=== PATIENT | female | born 1965 | race Caucasian/White ===

== ENCOUNTER 2019-08-21 11:30 | Outpatient (CLI) | payer OTHER, SELFPAY ==
--- NOTE | 2019-08-21 11:34 | ECG_ITS ---
Measurements Intervals [place] Rate: 73 P: -1 W[place]: 116 QRS: 23 QRSD: 92 T: 40 QT: 353 QTc: 390 Interpretive Statements SINUS RHYTHM WITH SHORT [place] INTERVAL BORDERLINE ECG Electronically Signed On 08-21-2019 11:51:32 SET ILLUSTRATOR by Ever Narayan D.O.
[2019-08-21 12:08] LABS: Alanine Aminotransferase 42 U/L (4-35); Albumin Level 4.8 g/dL (3.5-5.1); Alkaline Phosphatase 77 U/L (38-126); Amylase 76 U/L (30-110); Aspartate Amino Transferase 30 U/L (14-36); Bilirubin,Total 0.4 mg/dL (0.2-1.3); Lipase 112 U/L (23-300)
== END 2019-08-21 11:31 | disposition home or self-care (01) ==
LOC: ANHSURGERY 11:34
PROVIDERS: PCP Internal Medicine; Visit Provider Surgery
DX: K82.8 Other specified diseases of gallbladder (principal); R94.31 Abnormal electrocardiogram [ECG] [EKG]
CPT/HCPCS: 36415; 80076; 82150; 83690; 86850; 86900; 86901; 93005

== ENCOUNTER 2019-09-01 00:40 | Day surgery (SDC) | payer OTHER, SELFPAY ==
[2019-08-18 08:58] VITALS: BMI 24.7
[2019-09-01] VITALS (9 sets, daily range): BP systolic 114–150; BP diastolic 53–76; PULSE 63–83; RESP 12–18; TEMP 36.8; O2SAT 95–100; BMI 24.5
[2019-09-01] MEDS: LACTATED RINGERS 1,000 ML 30 ML IV CONT ×2 (11:40→13:54)
[2019-09-01] MEDS: IBUPROFEN IV 800 MG/200 ML 800 MG/200 ML BAG 400 MG IVPB (11:40)
--- NOTE | 2019-09-01 11:55 | SUR.PREOP ---
1140; PT C/O MILD HEADACHE AND SLIGHT NAUSEA. IV IBUPROFEN STARTED
--- NOTE | 2019-09-01 12:32 | WPDANESEPPF ---
Anes - Initial Pre Proc Eval Procedure: Operation Date: 09/01/19 13:00 Proposed Procedures p Laparoscopic Cholecystectomy, Possible Open - Adrián Quintana DO Date/Time: 09/01/19 12:32 Surgeon: Adrián Quintana DO Pre Op Diagnosis: biliary dyskenisia Patient Data Age: 54 Gender: F Height: 5 ft 3 in Weight: 63 kg Last Vital Signs Temp 98.2 F 09/01/19 11:40 Pulse 73 09/01/19 11:40 Resp 18 09/01/19 11:40 BP 150/64 H 09/01/19 11:40 Pulse Ox 99 09/01/19 11:40 Allergies Allergy/AdvReac Type Severity Reaction Status Date / Time sulfamethizole AdvReac Severe Migraine Verified 09/01/19 11:56 pantoprazole AdvReac Mild Diarrhea Verified 09/01/19 11:56 Sulfa (Sulfonamide AdvReac Mild severe Verified 09/01/19 11:56 Antibiotics) migraine trimethoprim AdvReac Mild Migraine Verified 09/01/19 11:56 Home Medications Medication Instructions Recorded Confirmed Type cholecalciferol (vitamin D3) 50 2,000 unit PO DAILY 07/18/19 09/01/19 History mcg (2,000 unit) capsule esomeprazole magnesium 20 mg 20 mg PO DAILY 07/18/19 09/01/19 History capsule,delayed release multivit with 1 tablet PO DAILY 07/18/19 09/01/19 History eiivisqk-emyi-IF-lutein 8 mg iron-400 mcg-300 mcg tablet melatonin 3 mg capsule 3 mg PO HS PRN 07/21/19 09/01/19 History Patient hx anesthesia problems: none Family hx anesthesia problems: none PMFSH Past Medical History Medical History (Updated 09/01/19 @ 12:25 by Demarcus Taylor MD) GERD (gastroesophageal reflux disease) History of seizure Hyperlipidemia Surgical History Surgical History Hx of tonsillectomy Social History Social History Smoking status: Former smoker Second hand tobacco smoke exposure: No Smoking end date: 07/16/85 Alcohol intake: current Anes - Eval Final PreProcedure Day of Procedure 09/01/19 12:32 Patient weight: normal Heart: regular rate and rhythm Lungs: clear to auscultation Airway: Mallampati scale class II Neurological: alert and oriented Last oral intake: >/= 8 hours ASA classification: II Emergent: no Anesthetic plan: proceed Anesthesia type and monitoring: general ETT and standard monitoring Informed Consent: The patient's anesthetic plan and its attendant risks and benefits were discussed with the patient/family/POA. Questions were solicited and answers provided to the satisfaction of the patient/family/POA.
--- NOTE | 2019-09-01 12:34 | WPDHPUPDATE1 ---
History and Physical Update Update Date/Time: 09/01/19 12:34 History and Physical has been reviewed, including an updated exam of the patient. There are NO changes in the patient's condition. Risks, benefits, and alternatives have been discussed and questions answered. Patient agrees to proceed with procedure.
[2019-09-01] MEDS: ceFAZolin 2 GM/D5W 50 ML 2 GM/50 ML BAG IVPB (12:51)
[2019-09-01] MEDS: BUPIVACAINE/EPINEPHRINE 0.5% 30 ML VIAL INFILTRATE (13:30)
--- NOTE | 2019-09-01 13:49 | PM.PROC ---
Procedure Note - Detailed Date of procedure: 09/01/19 Pre-op diagnosis: biliary dyskenisia Post-op diagnosis: same Procedure performed: Laparoscopic Cholecystectomy Description of procedure: Procedure as well as risks, benefits, and alternatives were discussed with patient. Written consent was obtained and placed in chart prior to procedure. The patient was brought back to surgical suite. Patient was placed in supine position on operating table. Time-out was done to confirm patient and procedure. Patient was then intubated by the anesthesia department. Abdomen was prepped and draped in sterile fashion using chlorhexidine prep. 0.5% bupivacaine with epinephrine was infiltrated at each site of incision. An 11 millimeter vertical incision was made at the inferior portion of the umbilicus using a 15 blade scalpel. Blunt dissection was carried down to the linea alba. The linea alba was then incised using a 15 blade scalpel. The peritoneum was then bluntly entered. An 11 millimeter trocar was inserted and cabon dioxied insuflation was used to create a pneumoperitoneum. The camera was inserted and the abdomen was inspected. The patient was placed in reverse Trendelenberg position and rotated slightly to the left. A 5 millimeter incision was made in the epigastric region, and a 5 millimeter trocar was inserted under direct visualization. Two 5 millimeter incisions were made in the right upper quadrant, and two 5 millimeter trocars were inserted under direct visualization. The gallbladder was identified and grasped at the fundus and retracted superiorly. It was then grasped at the infundibulum retracted laterally. Careful dissection around the neck of the gallbladder was performed using blunt dissection with a [place] grasper and hook electrocautery. The cystic duct was identified, and a window was created behind it. The cystic artery was also identified and a window was created behind it. The critical view of safety was identified, visualizing the cystic duct running directly into the neck of the gallbladder, and the cystic artery running directly into the wall of the gallbladder. A 5 millimeter clip lens dotter was then used to place 2 clips proximally and 1 clip distally on both the cystic duct and cystic artery. They were then both transected using endoscopic scissors. Once safely away from the michael hepatitis, the gallbladder was dissected free from the liver bed using hook electrocautery. Hemostasis was achieved along the way. The gallbladder was removed completely and then removed through the umbilical port. The liver bed was then inspected. Hemostasis appeared adequate, and our clips appeared secure. The area was gently irrigated with sterile saline. No other abnormalities were seen. The patient was flattened out in bed, and 1 final inspection was made around the abdominal cavity. The ports were then removed under direct visualization, the camera was removed, and the pneumoperitoneum was released. The fascia of the umbilical incision was approximated using an 0 Vicryl [id number] suture. The skin of the incisions was approximated using 4-0 Monocryl subcuticular sutures. Exofin glue was applied on top. The patient was then awakened from anesthesia, extubated, and transferred to recovery. 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 She had a prior history of symptoms several years ago and had workup at that time which was essentially normal. She was placed on a PPI and with diet modification was able to control her symptoms. Over these past few months her symptoms have persisted despite dietary modifications. Gallbladder
== END 2019-09-01 16:15 | disposition home or self-care (01) ==
PROVIDERS: PCP Internal Medicine; Visit Provider Surgery
PROC: 0FT44ZZ Resection of Gallbladder, Percutaneous Endoscopic Approach (ICD-10-PCS; CPT 47562; principal; 2019-09-01 13:00)
DX: K81.1 Chronic cholecystitis (principal); E78.5 Hyperlipidemia, unspecified; K21.9 Gastro-esophageal reflux disease without esophagitis; Z87.891 Personal history of nicotine dependence
CPT/HCPCS: 47562; 88304; A9270; J0690; J1100; J1741; J2250; J2405; J2704; J2710; J3010; J7030; J7120

== ENCOUNTER 2020-07-05 06:56 | Outpatient (CLI) | payer OTHER, SELFPAY ==
[2020-07-05 07:27] LABS: Eosinophils Absolute Auto 0.2 K/mm3 (0-0.3); Hematocrit 36.5 % (37.0-47.0); Hemoglobin 12.1 g/dL (12.0-15.0); Immature Granulocyte Absolute 0.01 K/mm3 (0.00-0.031); Immature Granulocyte Percent A 0.2 % (0-0.5); Lymphocytes Absolute Auto 1.69 K/mm3 (0.9-3.2); Lymphocytes Percent Auto 40.1 % (18.3-44.2); Mean Corpuscular HGB Conc 33.2 g/dl (32-36); Mean Corpuscular Hemoglobin 30.6 pg (26-34); Mean Corpuscular Volume 92.2 fl (80-100); Mean Platelet Volume 9.1 fl (7.4-10.4); Monocytes Absolute Auto 0.3 K/mm3 (0.1-0.6); Monocytes Percent Auto 6.2 % (2.6-8.5); Neutrophils Percent Auto 48.5 % (45.5-73.1); Platelet Count Result 310 k/mm3 (150-375); Red Blood Count 3.96 M/mm3 (4.2-5.4); Red Cell Distribution Width 12.9 % (11.5-14.5); White Blood Count 4.2 K/mm3 (4.5-10.0)
[2020-07-05 07:39] LABS: Alanine Aminotransferase 18 U/L (4-35); Albumin Level 4.1 g/dL (3.5-5.1); Alkaline Phosphatase 61 U/L (38-126); Anion Gap 8 mmol/L (8-16); Aspartate Amino Transferase 22 U/L (14-36); Bilirubin,Total 0.5 mg/dL (0.2-1.3); Blood Urea Nitrogen 11 mg/dL (7-17); Calcium 9.2 mg/dL (8.4-10.2); Carbon Dioxide 28 mmol/L (22-30); Chloride 104 mmol/L (98-107); Cholesterol 208 mg/dL (0-200); Estimated Glomerular Filt Rate > 60; Glucose 105 mg/dL (65-105); HDL Direct 60 mg/dL; Magnesium 2.1 mg/dL (1.6-2.3); Potassium 3.9 mmol/L (3.4-5.0); Sodium 140 mmol/L (137-145); Triglycerides 64 mg/dL (<150)
[2020-07-05 07:50] LABS: LDL Cholesterol Direct 136 mg/dL
[2020-07-05 08:23] LABS: Vitamin D 25 Hydroxy 54.5 ng/mL
[2020-07-05 08:45] LABS: Folic Acid 17.7 ng/mL (2.76->20)
== END 2020-07-05 06:57 | disposition home or self-care (01) ==
PROVIDERS: PCP Internal Medicine; Visit Provider Internal Medicine
DX: Z00.00 Encounter for general adult medical examination without abnormal findings (principal); E55.9 Vitamin D deficiency, unspecified; R53.83 Other fatigue; K21.9 Gastro-esophageal reflux disease without esophagitis
CPT/HCPCS: 36415; 80053; 80061; 82306; 82607; 82746; 83735; 84443; 85025

== ENCOUNTER 2020-09-28 15:14 | Outpatient (CLI) | payer OTHER, SELFPAY ==
--- NOTE | ~2020-09-28 | XR_ITS ---
XR foot RT 2V DATE: 09/28/2020 15:31 INDICATION: Right lateral dorsal foot pain following injury TECHNIQUE: 2 views COMPARISON: None FINDINGS: Mild osteoarthritis at the first metatarsophalangeal joint. No fracture, dislocation, periosteal reaction or bone destruction, erosive change or calcaneal enthes opathy. IMPRESSION: Mild osteoarthritis at first metatarsophalangeal joint Reviewed, dictated and finalized at location A.
== END 2020-09-28 15:15 | disposition home or self-care (01) ==
PROVIDERS: PCP Internal Medicine; Visit Provider Internal Medicine
DX: M19.071 Primary osteoarthritis, right ankle and foot (principal)
CPT/HCPCS: 73620

== ENCOUNTER 2021-04-05 14:57 | Outpatient (CLI) | payer OTHER, SELFPAY ==
[2021-04-08 17:55] LABS: Lyme Disease Ab (IgM), Blot Negative (Negative); Lyme Disease Ab(IgG), Blot Negative (Negative)
== END 2021-04-05 14:58 | disposition home or self-care (01) ==
LOC: ANHLAB 15:00
PROVIDERS: PCP Internal Medicine; Visit Provider Physician Assistant
DX: T14.8XXA Other injury of unspecified body region, initial encounter (principal); W57.XXXA Bitten or stung by nonvenomous insect and other nonvenomous arthropods, initial encounter
CPT/HCPCS: 36415; 86617

== ENCOUNTER 2021-04-15 08:21 | Outpatient (CLI) | payer OTHER, SELFPAY ==
--- NOTE | 2021-04-19 12:13 | WPDHOLTEREM ---
Holter/Event Monitor Holter/Event Monitor Date of procedure: 04/15/21 Holter/Event Procedure: 24 Hr Holter Monitor Indications: Palpitations Conclusion: 1. 24 hour holter monitor on 04/15/21. 2. Underlying rhythm is sinus rhythm. HR range 53-126 bpm; average HR 78 bpm. 3. There are 3 premature supraventricular complexes and 4 supraventricular couplets. No supraventricular tachycardia. 4. There are 354 premature ventricular complexes, 4 ventricular bigeminy and 17 ventricular trigeminy. No ventricular tachycardia. 5. No sinoatrial or atrioventricular blocks. No significant pauses greater than 2 seconds. 6. Patient reports symptoms of chest pain, palpitations, fluttering which demonstrate sinus rhythm, HR range 74-99 bpm.
== END 2021-04-15 08:22 | disposition home or self-care (01) ==
LOC: ANHCARD 08:23
PROVIDERS: PCP Internal Medicine; Visit Provider Physician Assistant
DX: R00.2 Palpitations (principal)
CPT/HCPCS: 93225; 93226

== ENCOUNTER 2021-06-03 07:35 | Outpatient (CLI) | payer OTHER, SELFPAY ==
--- NOTE | 2021-06-03 | ECHO_ITS ---
Patient Info Name: Hetal Cordero Age: 55 years : 1965 Gender: Female Ht: 63 in Wt: 140 lbs BSA: 1.69 m2 HR: 71 bpm BP: 125 / 71 mmHg Heart Rhythm: Sinus Rhythm Exam Date: 06/03/2021 10:00 AM Exam Location: [facility] Patient Status: Outpatient Admit Date: 06/03/2021 Staff Ordering Physician: Christiana Kitchen MD Fuel Cell Repairer: Ervin Hammer, ANA, RT Attending Provider: Christiana Kitchen MD Exam Type: CA echo doppler color flow Study Info Complete two-dimensional, color flow and Doppler transthoracic echocardiogram is performed. Strain analysis performed. Summary 1. Complete two-dimensional, color flow and Doppler transthoracic echocardiogram is performed. 2. Strain analysis performed. 3. Left ventricular chamber dimension is normal. 4. Left ventricular systolic function is normal, estimated at 65-70%. 5. There is no increased left ventricular wall thickness. 6. The left ventricular diastolic function is grade I diastolic dysfunction. 7. Global longitudinal strain is normal at -18 %. 8. There is mild to moderate mitral valve regurgitation. 9. There is mild tricuspid valve regurgitation. Left Ventricle Left ventricular chamber dimension is normal. Left ventricular systolic function is normal, estimated at 65-70%. There is no increased left ventricular wall thickness. The left ventricular diastolic function is grade I diastolic dysfunction. Global longitudinal strain is normal at -18 %. Right Ventricle Right ventricular chamber dimension is normal. Right ventricular systolic function is normal. Left Atria Left atrial chamber dimension is normal. Right Atria Right atrial chamber dimension is normal. Atrial Septum Intact interatrial septum visualized by color flow imaging. Aortic Valve The aortic valve is probable trileaflet. There is mild aortic valve sclerosis. There is no aortic valve stenosis. There is trace aortic valve regurgitation. Pulmonic Valve The pulmonic valve is normal. There is no pulmonic valve stenosis. There is trace pulmonic regurgitation. Mitral Valve The mitral valve has normal leaflets. There is no mitral valve stenosis. There is mild to moderate mitral valve regurgitation. Tricuspid Valve The tricuspid valve leaflets are normal. There is no significant tricuspid valve stenosis. There is mild tricuspid valve regurgitation. No pulmonary hypertension, estimated pulmonary arterial systolic pressure is 22 mmHg. Pericardium/Pleural The pericardium appears normal. There is no pericardial effusion. Inferior Vena Cava Normal inferior vena cava with >50% collapse upon inspiration consistent with normal right atrial pressure, 5 mmHg. Aorta The aortic root size at the sinus of Valsalva is normal. Left Ventricular Outflow Tract Name Value Normal LVOT 2D LVOT Diameter 2.0 cm LVOT Doppler LVOT Peak Gradient 2 mmHg LVOT Mean Gradient 1 mmHg LVOT VTI 19 cm LVOT VTI/AV VTI Ratio 0.7 LVOT Stroke Volume
--- NOTE | 2021-06-03 | EST_ITS ---
Patient Info Name: Hetal Cordero Age: 55 years : 1965 Gender: Female Exam Date: 06/03/2021 11:03 AM Patient Status: Outpatient Admit Date: 06/03/2021 Staff Ordering Physician: Christiana Kitchen MD Litigation Manager: Ervin Hammer RDCS, RT Attending Provider: Christiana Kitchen MD Exercise Physician: Stefano Casey MD Exam Type: CA stress echo Study Info Indications R07.9 - Chest pain, unspecified Treadmill exercise stress echocardiogram is performed. Summary 1. With exercise, 2.0-2.[address] segment depression consistent with ischemia. 2. No echocardiographic evidence of ischemia up to level of 88% max predicted heart rate for age. 3. No exercise-induced chest pain. 4. Hypertensive blood pressure response. 5. Above average exercise capacity for age. Stress Echo Findings Left Ventricle Normal left venticular systolic function with no regional wall motion abnormalities noted at rest. Left ventricular end systolic volume decreases post stress. Overall global left ventricular systolic function Improved post stress. Left ventricular ejection fraction increases post stress. No regional wall motion abnormalities noted post stress. Normal augmentation of all wall segments without evidence of ischemia with stress. Left Ventricular Outflow Tract Name Value Normal LVOT 2D LVOT Diameter 1.97 cm LVOT Doppler LVOT Peak Gradient 2 mmHg LVOT Mean Gradient 1 mmHg LVOT VTI 18.67 cm LVOT VTI/AV VTI Ratio 0.68 LVOT Stroke Volume 56.83 ml LVOT CO 3.46 l/min LVOT CI 2.09 L/min/m2 Mitral Valve Name Value Normal MV Doppler MV Peak Gradient 1 mmHg MV Mean Gradient 0 mmHg MV Decel [place] 213.83 cm/s2 MV PHT 0 s MV Area (PHT) 2.86 cm2 4.00-5.00 MV Area (Cont Eq VTI) 4.75 cm2 MV Regurgitation Doppler MR Volume (Cont Eq) 41.46 ml MR Fraction (Cont Eq) 42 % MV Diastolic Function MV E Peak Velocity 56.64 cm/s MV A Peak Velocity 82.50 cm/s MV E/A 0.69 MV Decel Time 0 s MV Annular TDI MV E/e' (Septal) 8.44 <=8.00 MV E/e' (Lateral) 4.03 <=8.00 MV E/e' (Average) 6.23 Tri
--- NOTE | 2021-06-03 13:11 | PCCARD ---
Test completion was extended due to an issue sending images to synapse. IT assistance was needed to fix the issue. Murtaza
== END 2021-06-03 07:36 | disposition home or self-care (01) ==
LOC: ANHCARD 07:39
PROVIDERS: PCP Internal Medicine; Visit Provider Internal Medicine Cardiovascular Disease
DX: R00.2 Palpitations (principal); R07.89 Other chest pain; I36.1 Nonrheumatic tricuspid (valve) insufficiency; I34.0 Nonrheumatic mitral (valve) insufficiency
CPT/HCPCS: 93306; 93351

== ENCOUNTER 2022-04-27 09:34 | Outpatient (CLI) | payer OTHER, SELFPAY ==
[2022-04-27 10:03] LABS: Basophils Percent Auto 0.7 % (0.2-1.2); Eosinophils Absolute Auto 0.2 K/mm3 (0-0.3); Eosinophils Percent Auto 4.1 % (0-4.4); Hematocrit 38.9 % (37.0-47.0); Hemoglobin 12.7 g/dL (12.0-15.0); Immature Granulocyte Absolute 0.01 K/mm3 (0.00-0.031); Immature Granulocyte Percent A 0.2 % (0-0.5); Lymphocytes Absolute Auto 1.52 K/mm3 (0.9-3.2); Lymphocytes Percent Auto 36.3 % (18.3-44.2); Mean Corpuscular HGB Conc 32.6 g/dl (32-36); Mean Corpuscular Hemoglobin 30.9 pg (26-34); Mean Corpuscular Volume 94.6 fl (80-100); Mean Platelet Volume 8.8 fl (7.4-10.4); Monocytes Absolute Auto 0.3 K/mm3 (0.1-0.6); Neutrophils Absolute Auto 2.2 K/mm3 (1.3-6.7); Neutrophils Percent Auto 52.7 % (45.5-73.1); Platelet Count Result 328 k/mm3 (150-375); Red Blood Count 4.11 M/mm3 (4.2-5.4); Red Cell Distribution Width 12.8 % (11.5-14.5); White Blood Count 4.2 K/mm3 (4.5-10.0)
[2022-04-27 10:17] LABS: Influenza Control Positive
[2022-04-27 10:57] LABS: Alanine Aminotransferase 17 U/L (6-35); Albumin Level 4.6 g/dL (3.5-5.1); Alkaline Phosphatase 62 U/L (38-126); Anion Gap 9 mmol/L (8-16); Aspartate Amino Transferase 18 U/L (14-36); Bilirubin,Total 0.6 mg/dL (0.2-1.3); Blood Urea Nitrogen 9 mg/dL (7-17); Calcium 9.7 mg/dL (8.4-10.2); Carbon Dioxide 28 mmol/L (22-30); Chloride 103 mmol/L (98-107); Cholesterol 201 mg/dL (0-200); Estimated Glomerular Filt Rate > 60; Glucose 94 mg/dL (65-110); HDL Direct 61 mg/dL; Potassium 4.1 mmol/L (3.4-5.0); Sodium 140 mmol/L (137-145); Triglycerides 116 mg/dL (<150)
[2022-04-27 10:59] LABS: Vitamin D 25 Hydroxy 52.1 ng/mL
[2022-04-27 11:08] LABS: LDL Cholesterol Direct 113 mg/dL
[2022-04-27 12:03] LABS: Folic Acid 15.3 ng/mL (2.76->20)
== END 2022-04-27 09:35 | disposition home or self-care (01) ==
LOC: ANHLAB 10:00
PROVIDERS: PCP Internal Medicine; Visit Provider Internal Medicine
DX: R53.83 Other fatigue (principal); B34.9 Viral infection, unspecified; R19.7 Diarrhea, unspecified; Z00.00 Encounter for general adult medical examination without abnormal findings
CPT/HCPCS: 80053; 80061; 82306; 82607; 82746; 84443; 85025; 87045; 87427; 87804; 89055

== ENCOUNTER 2022-12-29 01:21 | Day surgery (SDC) | payer OTHER, SELFPAY ==
[2022-12-18 14:01] VITALS: BMI 23.8
--- NOTE | 2022-12-29 08:15 | WPDANESEPPF ---
Anes - Initial Pre Proc Eval Procedure: Operation Date: 12/29/22 13:30 Proposed Procedures p Esophagogastroduodenoscopy - Fabiano Fraga MD Date/Time: 12/29/22 08:15 Surgeon: Fabiano Fraga MD Pre Op Diagnosis: GERD Patient Data Age: 57 Gender: F Height: 1.6 m Weight: 61 kg Allergies Allergy/AdvReac Type Severity Reaction Status Date / Time sulfamethoxazole AdvReac Severe Migraine Verified 12/29/22 12:25 pantoprazole AdvReac Mild Diarrhea Verified 12/29/22 12:25 Sulfa (Sulfonamide AdvReac Mild severe Verified 12/29/22 12:25 Antibiotics) migraine trimethoprim AdvReac Mild Migraine Verified 12/29/22 12:25 Home Medications Medication Instructions Recorded Confirmed Type cholecalciferol (vitamin D3) 50 2,000 unit PO DAILY 07/18/19 12/18/22 History mcg (2,000 unit) capsule multivit with 1 tablet PO DAILY 07/18/19 12/18/22 History dzqiwolj-pwnv-AY-lutein 8 mg iron-400 mcg-300 mcg tablet (Centrum Silver Women) melatonin 3 mg capsule 3 mg PO HS PRN Insomnia 07/21/19 12/18/22 History simethicone 125 mg capsule 125 mg PO DAILY PRN Abdominal 09/20/20 12/18/22 History Discomfort famotidine 20 mg tablet 20 mg PO BID 09/21/20 12/18/22 History calcium carbonate 200 mg calcium 200 mg PO BID PRN Abdominal 04/05/21 12/18/22 History (500 mg) chewable tablet (Tums) Discomfort prasterone (dhea) 6.5 mg vaginal 1 insert vaginal DAILY 11/24/22 12/18/22 History insert omega 0-kju-xwq-fish oil 300 1 cap PO 3XW 12/18/22 12/18/22 History mg-1,000 mg capsule (Fish Oil) Patient hx anesthesia problems: none Family hx anesthesia problems: none Results Review: All pre-operative results and documents have been reviewed as part of the pre-operative evaluation. [facility] Past Medical History Medical History (Updated 12/29/22 @ 12:36 by Douglas Díaz MD) GERD (gastroesophageal reflux disease) History of seizure Hyperlipidemia Insomnia Mitral valve regurgitation Tricuspid valve regurgitation Surgical History Surgical History History of colposcopy History of laparoscopic cholecystectomy 09/01/2019 Hx of tonsillectomy Family History Family History Grandparent Hypertension Cerebrovascular accident Diabetes mellitus Mother Cerebrovascular accident History of alcohol abuse Diabetes mellitus Hypertension Depression Anxiety Father Hypertension Sibling Patient's brother is in good health Hypertension Other History of alcohol abuse Other Family history of alcoholism Family history of arthritis Family history of diabetes mellitus in first degree relative Family history of malignant neoplasm Family history of mental disorder Social History Social History Smoking status: Former smoker Second hand tobacco smoke exposure: No Smoking end date: 07/16/85 Alcohol intake: current Drinks per week: 2 Alcohol use details: 2-3 drinks per month Substance use: never Substance use type: does not use Lack of Transportation: No Lack of Food: Never True Current Housing: I Have Housing Concerned About Future Housing: No Difficulty Paying Gas/Electric Bills: No Difficulty Paying for Meds: No Currently Unemployed: No Education: Bachelor's Degree Difficulty w/ Childcare or Family Care: No Living arrangements: with family Spiritual care concerns: No Anes - Eval Final PreProcedure Day of Procedure 12/29/22 08:15 Patient weight: normal Heart: regular rate and rhythm Lungs: clear to auscultation Airway: Mallampati scale class II Neurological: alert and oriented Last oral intake: >/= 8 hours ASA classification: II Emergent: no Anesthetic plan: proceed Anesthesia type and monitoring: general GIVS and standard monitoring Results Review: All pre-operative results a
--- NOTE | 2022-12-29 11:20 | PM.HPGS ---
History of Present Illness History of Present Illness Consent: Risks, benefits, and alternatives have been discussed and questions answered. Patient agrees to proceed with procedure. Chief complaint: GERD Narrative: Hetal Codrero is a 57 year old female Referred because of refractory gastroesophageal reflux symptoms. She does take Nexium regularly. She has had episodes of atypical chest pain. Cardiac investigation a few months ago was negative. When she woke up at 4:00 a.m. and took a GI cocktail she had improvement in symptoms. she has had gastrointestinal problems for most of her life. She took Protonix several years ago for heartburn and later switched to Nexium. She stopped taking them and had return of symptoms for which she now takes Pepcid twice a day. When she has tried to take a PPI in the last couple years ago because brain fog. With her current regimen she does not have heartburn. Her main complaint is pain which is severe at times in the lower substernal area. Will last anywhere from 10 minutes to half an hour or so. She denies dysphagia. She has a son who has problems with bowels and she was wondering whether that could be connected somewhat to her symptoms. somebody also a distant relative has celiac disease. Her weight is stable . She feels that she is having spasms in her upper gastrointestinal tract. Review of Systems Review of Systems: All systems reviewed & are unremarkable except as noted in HPI and below PMFSH Past Medical History Medical History (Updated 12/29/22 @ 12:36 by Douglas Díaz MD) GERD (gastroesophageal reflux disease) History of seizure Hyperlipidemia Insomnia Mitral valve regurgitation Tricuspid valve regurgitation Surgical History Surgical History History of colposcopy History of laparoscopic cholecystectomy 09/01/2019 Hx of tonsillectomy Family History Family History Grandparent Hypertension Cerebrovascular accident Diabetes mellitus Mother Cerebrovascular accident History of alcohol abuse Diabetes mellitus Hypertension Depression Anxiety Father Hypertension Sibling Patient's brother is in good health Hypertension Other History of alcohol abuse Other Family history of alcoholism Family history of arthritis Family history of diabetes mellitus in first degree relative Family history of malignant neoplasm Family history of mental disorder Social History Social History Smoking status: Former smoker Second hand tobacco smoke exposure: No Smoking end date: 07/16/85 Alcohol intake: current Drinks per week: 2 Alcohol use details: 2-3 drinks per month Substance use: never Substance use type: does not use Lack of Transportation: No Lack of Food: Never True Current Housing: I Have Housing Concerned About Future Housing: No Difficulty Paying Gas/Electric Bills: No Difficulty Paying for Meds: No Currently Unemployed: No Education: Bachelor's Degree Difficulty w/ Childcare or Family Care: No Living arrangements: with family Spiritual care concerns: No Meds Home Medications and Allergies Home Medications Medication Instructions Recorded Confirmed Type cholecalciferol (vitamin D3) 50 2,000 unit PO DAILY 07/18/19 12/18/22 History mcg (2,000 unit) capsule multivit with 1 tablet PO DAILY 07/18/19 12/18/22 History oprqgirp-lkle-TO-lutein 8 mg iron-400 mcg-300 mcg tablet (Centrum Silver Women) melatonin 3 mg capsule 3 mg PO HS PRN Insomnia 07/21/19 12/18/22 History simethicone 125 mg capsule 125 mg PO DAILY PRN Abdominal 09/20/20 12/18/22 History Discomfort famotidine 20 mg tablet 20 mg PO BID 09/21/20 12/18/22 History calcium carbonate 200 mg calcium 200 mg PO BID PRN Abdominal 04/05/21 12/18/22 History (50
[2022-12-29 12:31] VITALS: BP 130/60; PULSE 72; RESP 18; TEMP 36.4; O2SAT 100
[2022-12-29] MEDS: LACTATED RINGERS 1,000 ML 150 ML IV CONT (12:42)
[2022-12-29] MEDS: BENZOCAINE (*SP) 60 ML SPRAY CAN (HURRICAINE) 1 SPRAY MUCOUS MEM (13:35)
[2022-12-29 13:49] VITALS: BP 100/56; PULSE 73; RESP 20; O2SAT 100
[2022-12-29 13:59] VITALS: BP 118/75; PULSE 69; RESP 18; O2SAT 100
[2022-12-29 14:09] VITALS: BP 118/76; PULSE 73; RESP 20; O2SAT 100
== END 2022-12-29 14:26 | disposition home or self-care (01) ==
PROVIDERS: PCP Internal Medicine; Visit Provider Internal Medicine Gastroenterology
PROC: 0DJ08ZZ Inspection of Upper Intestinal Tract, Via Natural or Artificial Opening Endoscopic (ICD-10-PCS; CPT 43235; principal; 2022-12-29 13:30)
DX: K21.9 Gastro-esophageal reflux disease without esophagitis (principal); K22.2 Esophageal obstruction; E78.5 Hyperlipidemia, unspecified; Z87.891 Personal history of nicotine dependence
CPT/HCPCS: 43239; 87081; 88305; J2704; J7120

== ENCOUNTER 2023-06-20 10:01 | Outpatient (CLI) | payer OTHER, SELFPAY ==
[2023-06-20 10:38] LABS: Basophils Percent Auto 0.8 % (0.2-1.2); Eosinophils Absolute Auto 0.1 K/mm3 (0-0.3); Eosinophils Percent Auto 3.6 % (0-4.4); Hematocrit 37.9 % (37.0-47.0); Hemoglobin 12.3 g/dL (12.0-15.0); Immature Granulocyte Absolute 0.01 K/mm3 (0.00-0.031); Immature Granulocyte Percent A 0.3 % (0-0.5); Lymphocytes Absolute Auto 1.26 K/mm3 (0.9-3.2); Mean Corpuscular HGB Conc 32.5 g/dl (32-36); Mean Corpuscular Hemoglobin 30.7 pg (26-34); Mean Corpuscular Volume 94.5 fl (80-100); Mean Platelet Volume 8.7 fl (7.4-10.4); Monocytes Absolute Auto 0.2 K/mm3 (0.1-0.6); Monocytes Percent Auto 6.7 % (2.6-8.5); Neutrophils Absolute Auto 1.9 K/mm3 (1.3-6.7); Neutrophils Percent Auto 53.6 % (45.5-73.1); Platelet Count Result 283 k/mm3 (150-375); Red Blood Count 4.01 M/mm3 (4.2-5.4); Red Cell Distribution Width 12.6 % (11.5-14.5); White Blood Count 3.6 K/mm3 (4.5-10.0)
[2023-06-20 10:50] LABS: Alanine Aminotransferase 18 U/L (6-35); Albumin Level 4.3 g/dL (3.5-5.1); Alkaline Phosphatase 55 U/L (38-126); Anion Gap 7 mmol/L (8-16); Aspartate Amino Transferase 23 U/L (14-36); Bilirubin,Total 0.7 mg/dL (0.2-1.3); Blood Urea Nitrogen 8 mg/dL (7-17); Calcium 9.1 mg/dL (8.4-10.2); Carbon Dioxide 28 mmol/L (22-30); Chloride 102 mmol/L (98-107); Cholesterol 226 mg/dL (0-200); Estimated Glomerular Filt Rate > 60; Glucose 86 mg/dL (65-110); HDL Direct 59 mg/dL; Potassium 3.9 mmol/L (3.4-5.0); Sodium 137 mmol/L (137-145); Triglycerides 73 mg/dL (<150)
[2023-06-20 11:01] LABS: LDL Cholesterol Direct 119 mg/dL
[2023-06-20 11:26] LABS: Vitamin D 25 Hydroxy 43.2 ng/mL
== END 2023-06-20 10:02 | disposition home or self-care (01) ==
PROVIDERS: PCP Internal Medicine; Visit Provider Internal Medicine
DX: Z00.00 Encounter for general adult medical examination without abnormal findings (principal); E55.9 Vitamin D deficiency, unspecified
CPT/HCPCS: 36415; 80053; 80061; 82306; 84443; 85025

== ENCOUNTER 2023-12-26 11:01 | Emergency (ER) | payer OTHER, SELFPAY ==
[2023-12-26 11:07] VITALS: BP 136/74; PULSE 73; RESP 16; TEMP 37; O2SAT 97
--- NOTE | 2023-12-26 11:09 | ED.SKABFB ---
HPI - Skin/Abscess/Foreign Bdy General Chief complaint: Skin/Abscess/Foreign Body Stated complaint: shingles Time Seen by Provider: 12/26/23 11:09 Source: patient Mode of arrival: ambulatory Limitations: no limitations History of Present Illness HPI narrative: Hetal is a 58-year-old female patient presenting to clinic today with complaints of a rash to the right lower lateral abdomen. She thinks that she may have shingles. States she 1st noticed a rash last night it is becoming itching and mildly painful. Noted a erythemic base with some vesicular like lesions. Patient works as a pharmacist. States she has been under lot of stress at home. No history of shingles in the past. Denies any environmental changes or concerns for poison bianca. Related Data Home Medications Medication Instructions Recorded Confirmed cholecalciferol (vitamin D3) 50 2,000 unit PO DAILY 07/18/19 09/27/23 mcg (2,000 unit) capsule melatonin 3 mg capsule 3 mg PO HS Insomnia 07/21/19 09/27/23 simethicone 125 mg capsule 125 mg PO DAILY Abdominal 09/20/20 09/27/23 Discomfort famotidine 20 mg tablet 20 mg PO BID 09/21/20 09/27/23 calcium carbonate (Tums) 200 mg PO BID Abdominal Discomfort 04/05/21 09/27/23 omega 4-hiw-ces-fish oil 300 1 cap PO 3XW 12/18/22 09/27/23 mg-1,000 mg capsule (Fish Oil) Lactobacillus rhamnosus GG 10 1 cap PO DAILY 02/20/23 09/27/23 billion cell capsule (Culturelle) vitamin B complex (B 1 tablet PO DAILY 02/20/23 09/27/23 Complex-Vitamin B12 tablet) Allergies Allergy/AdvReac Type Severity Reaction Status Date / Time sulfamethoxazole AdvReac Severe Migraine Verified 12/26/23 11:11 pantoprazole AdvReac Mild Diarrhea Verified 12/26/23 11:11 Sulfa (Sulfonamide AdvReac Mild severe Verified 09/27/23 08:04 Antibiotics) migraine trimethoprim AdvReac Mild Migraine Verified 09/27/23 08:04 Review of Systems Review of Systems: Pertinent positives per HPI. Patient denies any fever, chills, headache, visual changes, dizziness, cough, runny nose, sore throat, shortness of breath, chest pain, palpitations, nausea, vomiting, diarrhea, constipation, abdominal pain, or any urinary issues. [facility] Past Medical History Medical History GERD (gastroesophageal reflux disease) History of seizure Hyperlipidemia Insomnia Mitral valve regurgitation Tricuspid valve regurgitation Surgical History Surgical History History of colposcopy History of laparoscopic cholecystectomy 09/01/2019 Hx of tonsillectomy Family History Family History Grandparent Hypertension Cerebrovascular accident Diabetes mellitus Mother Cerebrovascular accident History of alcohol abuse Diabetes mellitus Hypertension Depression Anxiety Father Hypertension Sibling Patient's brother is in good health Hypertension Other History of alcohol abuse Other Family history of alcoholism Family history of arthritis Family history of diabetes mellitus in first degree relative Family history of malignant neoplasm Family history of mental disorder Social History Social History Smoking status: Former smoker Second hand tobacco smoke exposure: No Smoking end date: 07/16/85 Alcohol intake: current Drinks per week: 2 Alcohol use details: 2-3 drinks per month Substance use: never Substance use type: does not use Lack of Transportation: No Lack of Food: Never True Current Housing: I Have Housing Concerned About Future Housing: No Difficulty Paying Gas/Electric Bills: No Difficulty Paying for Meds: No Currently Unemployed: No Education: Bachelor's Degree Difficulty w/ Childcare or Family Care: No Living arrangements: with family Spiritual care concerns: No Com
[2023-12-26 11:13] VITALS: BP 136/74; PULSE 73; RESP 16; TEMP 37; O2SAT 97
== END 2023-12-26 11:34 | disposition home or self-care (01) ==
PROVIDERS: Emergency Provider Nurse Practitioner Family; PCP Internal Medicine
DX: B02.9 Zoster without complications (principal); Z87.891 Personal history of nicotine dependence; K21.9 Gastro-esophageal reflux disease without esophagitis; E78.5 Hyperlipidemia, unspecified; I08.1 Rheumatic disorders of both mitral and tricuspid valves
CPT/HCPCS: 99213; G0463

== ENCOUNTER 2024-02-19 10:11 | Outpatient (CLI) | payer OTHER, SELFPAY ==
--- NOTE | ~2024-02-19 | DEXA_ITS ---
Bone Density Report Name: EDDIE LAKHANI Age: 58 Sex: Female Ethnicity: White Date of : 1965 Indication: postmenopausal; screening for osteoporosis; Referring Provider: LUCIA REYEZ Study: Bone densitometry was performed. Exam Date: February 19, 2024 Accession number: [id number] Bone Density: Region BMD T-score Z-score Classification AP Spine(L1-L4) 0.868 -1.6 -0.2 Osteopenia Femoral Neck (Left) 0.658 -1.7 -0.4 Osteopenia Total Hip (Left) 0.904 -0.3 0.7 Normal Femoral Neck (Right) 0.653 -1.8 -0.5 Osteopenia Total Hip (Right) 0.828 -0.9 0.0 Normal Total Hip Mean 0.866 -0.6 0.4 Normal World Health Organization criteria for BMD impression classify patients as: Normal (T-score at or above -1.0), Osteopenia (T-score between -1.0 and -2.5), or Osteoporosis (T-score at or below -2.5). 10-year Fracture Risk(1): Major Osteoporotic Fracture 8.8% Hip Fracture 0.9% Reported Risk Factors: [place] (), Neck BMD=0.658, BMI=24.8 (1) FRAX(R) Version 3.08. Fracture probability calculated for an untreated patient. Fracture probability may be lower if the patient has received treatment. Clinical Information Provided by Patient: Has used the following medications: Vitamin D Patient maximum height was 63 Menopause Age: 51 No regular weight bearing exercise Drinks caffeinated beverages Onset of menses at age 11 Number of children 3 Impression: The patient has low bone mass, based on the Right Femoral Neck T-score. The patient has an estimated ten-year risk of hip fracture of 0.9% and an estimated ten-year risk of major fracture of 8.8%, based on the WHO FRAX algorithm. Discussion: BONE DENSITY IS LOW AT ONE OR MORE SKELETAL SITES. This patient's lowest T-score is low at one or more skeletal sites. It meets the World Health Organization's (WHO) criteria for ?low bone mass? (T-score between -1.0 and -2.5). The patient's 10-year risk of fracture as calculated by FRAX is less than the threshold where pharmacological therapy is recommended by the National Osteoporosis Foundation (NOF). However, all treatment decisions require clinical judgment and consideration of individual patient factors, including patient preferences, comorbidities, previous drug use, risk factors not captured in the FRAX model (e.g., frailty, falls, vitamin D deficiency, increased bone turnover, interval significant decline in bone density) and possible under or overestimation of fracture risk by FRAX. The patient should follow a healthful lifestyle (good nutrition with adequate calcium and vitamin D, and appropriate weight-bearing exercise). Follow-Up: Consider repeating this study in 2 to 3 years to reassess this patient's status, or sooner if there is some new clinical indication. Reported by: TRACE on
== END 2024-02-19 10:12 | disposition home or self-care (01) ==
LOC: ANHIMG 10:13
PROVIDERS: PCP Internal Medicine; Visit Provider Obstetrics & Gynecology
DX: Z78.0 Asymptomatic menopausal state (principal); M85.88 Other specified disorders of bone density and structure, other site; M85.852 Other specified disorders of bone density and structure, left thigh; M85.851 Other specified disorders of bone density and structure, right thigh
CPT/HCPCS: 77080

== ENCOUNTER 2024-04-10 09:14 | Outpatient (CLI) | payer OTHER, SELFPAY ==
[2024-04-10 09:44] LABS: Add Urine Microscopic? NO; Appearance Urine Clear (Clear); Bilirubin Urine Negative (Negative); Blood Urine Negative (Negative); Color Urine Yellow (Yellow); Glucose Urine UA Negative (Negative); Ketones Urine Negative (Negative); Leukocyte Esterase Ur Negative LEU/UL (Negative); Nitrate Urine Negative (Negative); Protein Urine Negative (Negative); Specific Grav Ur 1.004 (1.001-1.035); Urobilinogen Urine 0.2 mg/dL (<2.0); pH Urine 6.5 (5.0-9.0)
[2024-04-10 09:57] LABS: Alanine Aminotransferase 20 U/L (6-35); Albumin Level 4.5 g/dL (3.5-5.1); Alkaline Phosphatase 57 U/L (38-126); Anion Gap 8 mmol/L (4-12); Aspartate Amino Transferase 24 U/L (14-36); Bilirubin,Total 0.5 mg/dL (0.2-1.3); Blood Urea Nitrogen 8 mg/dL (7-17); Calcium 9.1 mg/dL (8.4-10.2); Carbon Dioxide 27 mmol/L (22-30); Chloride 104 mmol/L (98-107); Estimated Glomerular Filt Rate > 60; Glucose 96 mg/dL (65-110); Potassium 3.7 mmol/L (3.4-5.0); Sodium 139 mmol/L (137-145)
[2024-04-10 10:55] LABS: Hemoglobin A1C 5.9 % (<5.7)
== END 2024-04-10 09:15 | disposition home or self-care (01) ==
PROVIDERS: PCP Internal Medicine; Visit Provider Nurse Practitioner
DX: R73.9 Hyperglycemia, unspecified (principal)
CPT/HCPCS: 36415; 80053; 81003; 83036

== ENCOUNTER 2024-08-05 09:24 | Outpatient (CLI) | payer OTHER, SELFPAY ==
--- NOTE | ~2024-08-05 | XR_ITS ---
Left foot Technique: AP, oblique, and lateral views were obtained. Clinical History: Pain Findings: No acute fracture or dislocation is seen. Osseous alignment is anatomic. Joint spaces are p reserved without erosive or degenerative change. Soft tissues are unremarkable. Impression: Unremarkable left foot radiographs. Reviewed, dictated and finalized at [facility]. 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
[2024-08-05 10:02] LABS: Hematocrit 39.6 % (37.0-47.0); Mean Corpuscular HGB Conc 32.8 g/dl (32-36); Mean Corpuscular Hemoglobin 31.1 pg (26-34); Mean Corpuscular Volume 94.7 fl (80-100); Mean Platelet Volume 9.2 fl (7.4-10.4); Platelet Count Result 318 k/mm3 (150-375); Red Blood Count 4.18 M/mm3 (4.2-5.4); Red Cell Distribution Width 12.8 % (11.5-14.5)
[2024-08-05 10:15] LABS: Alanine Aminotransferase 17 U/L (6-35); Albumin Level 4.7 g/dL (3.5-5.1); Alkaline Phosphatase 67 U/L (38-126); Anion Gap 10 mmol/L (4-12); Aspartate Amino Transferase 20 U/L (14-36); Bilirubin,Total 0.7 mg/dL (0.2-1.3); Blood Urea Nitrogen 8 mg/dL (7-17); Calcium 9.8 mg/dL (8.4-10.2); Carbon Dioxide 27 mmol/L (22-30); Chloride 104 mmol/L (98-107); Cholesterol 220 mg/dL (0-200); Estimated Glomerular Filt Rate > 60; Glucose 96 mg/dL (65-110); HDL Direct 69 mg/dL; Magnesium 1.9 mg/dL (1.6-2.3); Potassium 3.9 mmol/L (3.4-5.0); Sodium 141 mmol/L (137-145); Triglycerides 65 mg/dL (<150)
[2024-08-05 10:27] LABS: LDL Cholesterol Direct 121 mg/dL
[2024-08-05 10:38] LABS: Free T4 Free Thyroxine 0.97 ng/dL (0.78-2.19)
[2024-08-05 13:17] LABS: Hemoglobin A1C 5.8 % (<5.7)
== END 2024-08-05 09:25 | disposition home or self-care (01) ==
LOC: ANHLAB 09:28
PROVIDERS: PCP Nurse Practitioner; Visit Provider Nurse Practitioner
DX: E78.5 Hyperlipidemia, unspecified (principal); E55.9 Vitamin D deficiency, unspecified; Z00.00 Encounter for general adult medical examination without abnormal findings; R73.9 Hyperglycemia, unspecified; K21.9 Gastro-esophageal reflux disease without esophagitis; M79.672 Pain in left foot
CPT/HCPCS: 36415; 73630; 80053; 80061; 82306; 82607; 83036; 83735; 84439; 84443; 85027

== ENCOUNTER 2024-08-13 11:37 | Emergency (ER) | payer OTHER, SELFPAY ==
[2024-08-13 11:53] VITALS: BP 133/66; PULSE 80; RESP 18; TEMP 36.2; O2SAT 100
--- NOTE | 2024-08-13 12:07 | ED_ITS ---
HPI - URI/Sore Throat General Chief Complaint: Upper Respiratory Infection Stated Complaint: Congestion,Headache,Sore Throat Time Seen by Provider: 08/13/24 12:07 Source: patient, RN notes reviewed and old records reviewed Mode of arrival: ambulatory Limitations: no limitations History of Present Illness HPI Narrative: patient presents with 2 days of runny nose, sore throat, headache, body aches. She endorses slight cough. She has not been taking any medications for her symptoms. She reports that she came here primarily because she is concerned about having something communicable because her mother is in the hospital. She does report that she recently babysat her granddaughter who did test positive for RSV Related Data Home Medications ?Medication ?Instructions ?Recorded ?Confirmed ?Last Taken ?Type cholecalciferol (vitamin D3) 50 2,000 unit PO DAILY 07/18/19 08/05/24 08/25/19 History mcg (2,000 unit) capsule melatonin 3 mg capsule 3 mg PO HS Insomnia 07/21/19 08/05/24 08/28/19 History simethicone 125 mg capsule 125 mg PO DAILY Abdominal 09/20/20 08/05/24 Unknown History Discomfort famotidine 20 mg tablet 20 mg PO BID 09/21/20 08/05/24 Unknown History calcium carbonate (Tums) 200 mg PO BID Abdominal Discomfort 04/05/21 08/05/24 Unknown History omega 3-myi-nyj-fish oil 300 1 cap PO 3XW 12/18/22 08/05/24 Unknown History mg-1,000 mg capsule (Fish Oil) Lactobacillus rhamnosus GG 10 1 cap PO DAILY 02/20/23 08/05/24 Unknown History billion cell capsule (Culturelle) vitamin B complex (B 1 tablet PO DAILY 02/20/23 08/05/24 Unknown History Complex-Vitamin B12 tablet) loratadine 5 mg disintegrating 5 mg PO ONCE 02/22/24 08/05/24 Unknown History tablet (Allergy Relief (loratadine)) Allergies Allergy/AdvReac Type Severity Reaction Status Date / Time pantoprazole AdvReac Intermediate Diarrhea Verified 08/13/24 11:42 Sulfa (Sulfonamide AdvReac Intermediate Headache Verified 08/13/24 11:42 Antibiotics) sulfamethoxazole AdvReac Intermediate Migraine Verified 08/13/24 11:42 trimethoprim AdvReac Intermediate Migraine Verified 08/13/24 11:42 Review of Systems Review of Systems: All systems reviewed & are unremarkable except as noted in HPI and below Constitutional: Constitutional: Reports no additional constitutional complaints, Reports body ache(s) and Reports headache(s) ENT: Reports system reviewed and no additional complaints, except as documented, Reports nasal discharge and Reports sore throat Cardiovascular: Cardiovascular: Reports no additional cardiovascular complaints Respiratory: Respiratory: Reports no additional respiratory complaints and Reports cough Gastrointestinal: Gastrointestinal: Reports no additional gastrointestinal complaints [facility] Past Medical History Medical History (Updated 08/13/24 @ 12:15 by Kelsi Lundberg APRN) BMI 24.0-24.9, adult Upper abdominal pain Pure hypercholesterolemia Gastro-esophageal reflux disease without esophagitis Ear pain, left Dizziness and giddiness Current use of proton pump inhibitor Tricuspid valve regurgitation Mitral valve regurgitation Insomnia Hyperlipidemia GERD (gastroesophageal reflux disease) History of seizure Surgical History Surgical History History of colposcopy History of laparoscopic cholecystectomy 09/01/2019 Hx of tonsillectomy Family History Family History Grandparent Hypertension Cerebrovascular accident Diabetes mellitus Mother Cerebrovascular accident History of alcohol abuse Diabetes mellitus Hypertension Depression Anxiety Dementia Father Hypertension Dementia Alzheimer disease Malignant neoplasm of prostate Carcinoma of colon Liver cancer Sibling Patient's brother is in good health Hypertension Other Family history of alcoholism Family history of arthritis Family history of diabetes mellitus in first degree relative Family history of malignant neoplasm Family history of mental disorder Social History Social History Smoking status: Former smoker Second hand tobacco smoke exposure: No Smoking end date: 07/16/85 Alcohol intake: current Drinks per week: 2 Alcohol use details: 2-3 drinks per month Substance use: never Substance use type: does not use Do You Feel Safe in your Home?: Yes Lack of Transportation: No Lack of Food: Never True Current Housing: I Have Housing Concerned About Future Housing: No Difficulty Paying Gas/Electric Bills: No Difficulty Paying for Meds: No Currently Unemployed: No Education: Bachelor's Degree Difficulty w/ Childcare or Family Care: No Living arrangements: with family Occupation/Education: occupation Additional occupation/education comments: Pharmacist Gender identity (if verbalized by the patient): Female Spiritual care concerns: No Comments At the time of my signature, I reviewed and agree with the nursing past medical, surgical, social, and family history. There is no relevant family history pertinent to the patient complaint. Exam Const: General: cooperative, no acute distress, alert and awake Orientation/consciousness: oriented to person, oriented to place and oriented to time HENMT: Head: normal to inspection Ears: TM's normal bilaterally Mouth: Yes moist mucous membranes Throat: posterior oropharynx normal Resp: Effort & Inspection: normal respiratory effort and able to speak in complete sentences Auscultation: clear to auscultation bilaterally, no crackles, no rales, no rhonchi and no wheezes Cardio: Palpation: normal PMI Rate: regular rate Rhythm: regular rhythm Heart sounds: S1 normal heart sound present and S2 normal heart sound present Neuro: General: oriented to person, oriented to place and oriented to time Cranial nerves: Yes CN's II-XII intact bilaterally Psych: Appearance: grossly normal Thought process: Normal thought process present Insight: Good insight present (Psych) Judgement: Good judgement present (Psych) Course Course Level of Care: Express Care Visit Vital Signs Vital signs: Vital Signs Temperature 97.1 F L 08/13/24 11:53 Pulse Rate 80 08/13/24 11:53 Respiratory Rate 18 08/13/24 11:53 Blood Pressure 133/66 08/13/24 11:53 Pulse Oximetry 100 08/13/24 11:53 Oxygen Delivery Room Air 08/13/24 11:53 Temperature 97.1 F L 08/13/24 11:53 Pulse Rate 80 08/13/24 11:53 Respiratory Rate 18 08/13/24 11:53 Blood Pressure 133/66 08/13/24 11:53 Pulse Oximetry 100 08/13/24 11:53 Oxygen Delivery Room Air 08/13/24 11:53 Reviewed MDM - URI/Sore Throat MDM Narrative Medical decision making narrative: negative COVID, negative flu, negative strep. Culture pending. Patient does express disappointment that we do not test people in her age group for RSV at this facility . Her symptoms likely are viral in origin, she is advised to treat symptomatically. Discharge instructions reviewed with patient, as well as provided in writing per nursing staff. The instructions also include specific and strict return/GO TO THE ER as well as f/u information. All questions have been answered, and the patient deny any further questions with discharge and discharge plan. Some parts of this dictation were generated by voice recognition software and may contain typographical and/or grammatical inaccuracies. Differential Diagnosis Differential diagnosis: Likely upper respiratory infection, otitis media, sinusitis, bronchitis, influenza and pharyngitis Medical Records Attestation: I reviewed the patient's medical records. Lab Data Attestation: I reviewed the patient's lab results. Discharge Plan Discharge Clinical Impression: Acute viral syndrome Patient Disposition: Home, Self-Care Condition: Stable Instructions: Antibiotic Form Additional Instructions: use [id number] medications to treat your symptoms. Follow package instructions. Emergency department for any new or worse symptoms. Follow up with primary care provider. Patient Language: Lao Prescriptions: No Action cholecalciferol (vitamin D3) 50 mcg (2,000 unit) capsule 2,000 unit PO DAILY melatonin 3 mg capsule 3 mg PO HS calcium carbonate [Tums] 200 mg calcium (500 mg) tablet,chewable 200 mg PO BID methocarbamol 500 mg tablet 500 mg PO TID PRN (Reason: muscle spasm) Qty: 10 0RF zolpidem [Ambien CR] 6.25 mg tablet,ext release multiphase 6.25 mg PO QHS Qty: 30 0RF simethicone 125 mg capsule 125 mg PO DAILY vitamin B complex [B Complex-Vitamin B12] Tablet 1 tablet PO DAILY Culturelle 10 billion cell capsule 1 cap PO DAILY Allergy Relief (loratadine) 5 mg tablet,disintegrating 5 mg PO ONCE omega 4-dag-ngp-fish oil [Fish Oil] 300-1,000 mg Capsule 1 cap PO 3XW famotidine 20 mg tablet 20 mg PO BID Intrarosa 6.5 mg insert 6.5 mg vaginal DAILY Qty: 84 1RF Follow-up/Referrals: Nigel Carranza APRN [Primary Care Provider] - 2 Weeks Stand Alone Forms: Work/School Release IP Time of Disposition: 12:16
[2024-08-13 12:14] LABS: EDCOVIDSCREEN Negative (Negative); EDINFLUASCREEN Negative (Negative); EDINFLUBSCREEN Negative (Negative); EDSTREPNEGPOS1 Negative (Negative)
--- OUTSIDE RECORDS SUMMARY | 2024-08-13 12:57 | XMS_ITS | Clinical Summary ---
Author Organization [facility] Address [address] [place] [address] Care Team Providers Care Credit Collection Associate Name Role Phone Unavailable Primary Care Provider Unavailabl e Source Comments [facility],non-owned Affiliates and Associated Physician Practices is amultiple site organization consisting of ambulatory clinics and hospital sitesin [place], [place], [place] and [place]. This disclosure is being madepursuant to the Care Everywhere program and may not contain all information available regarding this patient. Last updated 18.[facility] Allergies Active Allergy Reactions Criticality Noted Date Comments Sulfamethoxazole W-Trimethoprim Headache 04/15 Immunizations Name Administration Dates Next Due HEP A VACCINE, ADULT 08/01/2018,08/07/2017 HEP B VACCINE, ADULT 3 DOSE 05/03/2018, 8,08/07/2017 TDAP (7yrs+) 08/07/2017 Social History Tobacco Use Types Packs/Day Years Used Date Smoking Tobacco: Never Assessed Sex and Gender Information Value Date Recorded Sex Assigned at Not on file Gender Identity Not on file Sexual Orientation Not on file Plan of Treatment Health Maintenance Due Date Last Done Comments COLOGUARD (AGES 45-75) - COL ON CA SCREENING 1965 COLON MONITORING 1965 COLONOSCOPY - COLON CA SCREENING 1965 CT COLONOGRAPHY - COLON CA SCREENING 1965 Colorectal Cancer Screening 1965 FIT - COLON CA SCREENING 1965 FLEX SIG - COLON CA SCREENING 1965 LIPID TESTING 1965 MAMMOGRAM 1965 PAP SMEAR 1963 HIV SCREENING 1978 HEPATITIS C SCREENING 08/05/1981 PNEUMOCOCCAL VACCINE 50+ (1 of 1 - PCV) 2013 ZOSTER VACCINE (1 of 2) 2013 COVID-19 VACCINE ( - 2023-2 5 season) 2024 INFLUENZA VACCINE (#1) 2024 DEPRESSION SCREENING 07/16/2024 DTAP/TDAP/TD VACCINES (2 - T d or Tdap) 08/07/2027 08/07/2017 Respiratory Syncytial Virus (RSV) Vaccine Pt: or over 60 yrs (1 - 1-dose 75+ series) 2038 HEPATITIS B VACCINE Completed 05/03/2018, 09/05/2017, 08/07/2017 HEPATITIS A VACCINE Completed 08/01/2018, 08/07/2017 HIB VACCINE Aged Out No longer eligi ble based on patient's age to complete this topic HPV VACCINE Aged Out No longer eligi ble based on patient's age to complete this topic MENINGOCOCCAL (Group B) VACCINE Aged Out No longer eligible b ased on patient's age to complete this topic MENINGOCOCCAL VACCINE Aged Out No nannette dionne eligible based on patient's age to complete this topic PNEUMOCOCCAL VACCINE Aged Out No long er eligible based on patient's age to complete this topic
--- OUTSIDE RECORDS SUMMARY | 2024-08-13 12:57 | XMS_ITS | Patient Health Summary ---
Author Organization [facility] Address [address] [place] [address] Care Team Providers Care School Business Manager Name Role Phone Unavailable Primary Care Provider Unavailabl e Note from [facility],non-owned Affiliates and Associated Physician Practices is amultiple site organization consisting of ambulatory clinics and hospital sitesin [place], [place], [place] and [place]. This disclosure is being madepursuant to the Care Everywhere program and may not contain all information available regarding this patient. Last updated 18.[facility] Allergies * Sulfamethoxazole W-Trimethoprim(Headache) Immunizations * HEP A VACCINE, ADULT(Given 08/01/2018, 08/07/2017) * HEP B VACCINE, ADULT 3 DOSE(Given 05/03/2018, 09/05/2017, 08/07/2017) * TDAP (7yrs+)(Given 08/07/2017) Social History Tobacco Use Types Packs/Day Years Used Date Smoking Tobacco: Never Assessed Sex and Gender Information Value Date Recorded Sex Assigned at Not on file Gender Identity Not on file Sexual Orientation Not on file Procedures * GROSS + MICRO EXAM(Performed 01/21/2007) Results * GROSS + MICRO EXAM (01/21/2007 1:57 PM CDT) Result CASE NUMBER [id number] Comment: ORDERING PHYSICIAN ??JAVIER LORENZO SPECIMEN TYPE ?Esophageal Biopsy-Distal Esophagus Date ? 01/21/2007 Physician ?[place], [place] Gross Description ? The specimen is received in a formalin-filled container labeled with the patient's name and distal esophagus . ??It consists of multiple 1 mm. fragments of brantley tissue. ??All submitted in a single cassette. LW/bk Microscopic Exam ? Sections sow fragments of esophageal squamous mucosa with unremarkable histology. No atypia or malignancy is seen. No intestinal metaplasia or dysplasia is seen. MC/na Diagnosis ? I. ?Distal esophagus, biopsy -- ?History of esophageal reflux -- ?No pathologic diagnosis MC/na Visitor Use Assistant ? na Pathologist ?Manasa Prakash M.D. [place]. ?01/22/2007 0926 <1> CPT code ? 73286 MISCELLANEOUS SAMPLES / Unknown 01/21/2007 1:57 PM CDT 01/21/2007 1:57 PM CDT Historical Provider MD LAB - PATHOLOGY/C YTOLOGY ORDERABLES
--- OUTSIDE RECORDS SUMMARY | 2024-08-13 12:57 | XMS_ITS | Referral Summary ---
Author Organization [facility] Address [address] [place] [address] Care Team Providers Care Field Instructor Name Role Phone Saurav Valverde MD Primary Care Provider +1 [phone] Encounters Date Type Department Care Team Description 07/04/2024 Orders Only [facility] Medical [facility] Cardiology [address] [place] [address] ProviderAsuncion MD 07/04/2024 10:30 AM WEIGHT TRAINING INSTRUCTOR Office Visit [facility] Cardiology [address] [place] [address] Stefano Casey MD Nonrheumatic mitral valve regurgitation (Primary Dx); Other chest pain; Palpitations; Pure hypercholesterolemia; Equivocal stress test from Last 3 Months Allergies Active Allergy Reactions Criticality Noted Date Comments Sulfamethoxazole-Trimethoprim Headache Low 2017 Trimethoprim Other (See comments) Low 05/16/2021 migraine Unclassified Drug Other (See comments) Low 06/29/20 16 Medications melatonin tablet Take by mouth nightly as needed Active famotidine (PEPCID) 20 mg tablet Take 1 tablet (20 mg total) by mouth 2 (two) times a day Active LORATADINE ORAL Take 5 mg by mouth as needed Active calcium carbonate (TUMS) 500 mg (200 mg elemental iron) chewable tablet Take 1 tablet/chew tab (500 mg total) by mouth daily Active Intrarosa 6.5 mg insert 01/13 01/14 023 Active rosuvastatin (CRESTOR) 5 mg tabletIndications:Pure hypercholesterolemia Take 1 tablet (5 mg total) by mouth daily 90 tablet 3 023 Active Additional Information Patient not taking.Reported on 07/04/2024 vitamin b complex tablet Take 1 tablet by mouth daily Active cholecalciferol (VITAMIN D-3) 2000 unit capsule 1 capsule (2,000 Units total) Active magnesium glycinate 100 mg tablet Take 100 mg by mouth Active Lactobac. rhamnosus GG-inulin 10 billion cell -200 mg tablet,chewable Take by mouth Active Active Problems Problem Noted Date Diagnosed Date Equivocal stress test 01/30/2023 Nonrheumatic mitral valve regurgitation 07/18/19 22 Pure hypercholesterolemia 05/18/2021 Other chest pain 05/16/2021 Palpitations 05/16/2021 Social History Tobacco Use Types Packs/Day Years Used Date Smoking Tobacco: Former Tobacco Cessation:Counseling Given: Not Answered Comments Unknown Sex and Gender Information Value Date Recorded Sex Assigned at Not on file Legal Sex Female 11:37 AM WEIGHT TRAINING INSTRUCTOR Gender Identity Not on file Sexual Orientation Not on file Last Filed Vital Signs Vital Sign Reading Time Taken Comments Blood Pressure 126/82 07/04/2024 10:51 AM WEIGHT TRAINING INSTRUCTOR Pulse 80 07/04/2024 10:51 AM WEIGHT TRAINING INSTRUCTOR Temperature - - Respiratory Rate - - Oxygen Saturation 96% 07/04/2024 10:51 AM WEIGHT TRAINING INSTRUCTOR Inhaled Oxygen Concentration - - Weight 61.2 kg (135 lb) 07/04/2024 10:51 AM WEIGHT TRAINING INSTRUCTOR Height 160 cm (5' 3 ) 07/04/2024 10:51 AM WEIGHT TRAINING INSTRUCTOR Body Mass Index 23.91 07/04/2024 10:51 AM WEIGHT TRAINING INSTRUCTOR Plan of Treatment Not on file Procedures Procedure Name Priority Date/Time Associated Diagnosis Comments POCT LIPID PANEL Routine 07/04/2024 10:59 AM WEIGHT TRAINING INSTRUCTOR Pure hypercholesterolemia SCREENING MAMMOGRAM BILATERAL W FILIBERTO Schedule Routine, Read Routine (OP Routine) 11/21/2023 1:03 PM CDT Screening mammogram, encounter for from Last 3 Months or Most Recently Relevant to Health Maintenance Results * POCT lipid panel (07/04/2024 10:59 AM WEIGHT TRAINING INSTRUCTOR) Cholesterol, POC 256 mg/dL Comment:Glucose = 86 HDL, POC 73 mg/dL Triglycerides, POC 65 mg/dL LDL Cholesterol POC 169 mg/dL Chol/HDL Ratio, POC 2.3 Non-HDL Cholesterol, POC 182 mg/dL Cholesterol Total, POC 256 mg/dL Capillary blood 07/04/2024 1 0:59 AM WEIGHT TRAINING INSTRUCTOR Stefano Casey MD POINT OF CARE TEST ORDERA BLES Final Result * Screening Mammogram Bilateral W Filiberto (11/21/2023 1:03 PM CDT) Anatomical Region Laterality Modality Breast Bilateral Mammography Narrative 11/22/2023 2:31 PM CDT Mammogram Technique: Bilateral Digital Breast Tomosynthesis, Bilateral C-view 2D Screening mammogram. ??Views obtained: ??bilateral craniocaudal and bilateral mediolateral oblique. ??Computer Aided Detection was performed. Mammogram Findings: The present examination has been compared to prior imaging studies performed at [facility] on 03/09/2020, 07/11/2021 and 10/19/2022. There are scattered areas of fibroglandular density. There is no suspicious abnormality in either breast. Impression: There is no mammographic evidence of malignancy. Annual screening mammography is recommended. OVERALL FINAL ASSESSMENT: BI-RADS CATEGORY 1: ??Negative. Procedure Note Adina Almendarez MD - 11/22/2023 Mammogram Technique: Bilateral Digital Breast Tomosynthesis, Bilateral C-view 2D Screening mammogram. Views obtained: bilateral craniocaudal and bilateral mediolateral oblique. Computer Aided Detection was performed. Mammogram Findings: The present examination has been compared to prior imaging studies performed at [facility] on 03/09/2020, 07/11/2021 and 10/19/2022. There are scattered areas of fibroglandular density. There is no suspicious abnormality in either breast. Impression: There is no mammographic evidence of malignancy. Annual screening mammography is recommended. OVERALL FINAL ASSESSMENT: BI-RADS CATEGORY 1: Negative. Self Screening Mammogram IMG MAMMO PROCEDURES Fi nal Result from Last 3 Months or Most Recently Relevant to Health Maintenance Insurance [facility] PREFERR[facility] [place] [phone] [facility] [place] [address] [place] [address] [facility] PREFERRED Care Teams Field Instructor Relationship Specialty Start Date End Date Saurav Valverde MD [address] [facility] [address] [place] [address] PCP - General Obstetrics and Gynecology 10/17/23
--- OUTSIDE RECORDS SUMMARY | 2024-08-13 12:57 | XMS_ITS | Referral Summary ---
Author Organization [facility] Address [address] [facility] [address] [place] [address] Care Team Providers Care Emulsion Coater Name Role Phone Unavailable Primary Care Provider Unavailabl e Source Comments [facility],non-owned Affiliates and Associated Physician Practices is amultiple site organization consisting of ambulatory clinics and hospital sitesin [place], [place], [place] and [place]. This disclosure is being madepursuant to the Care Everywhere program and may not contain all information available regarding this patient. Last updated 18.[facility] Stitch Allergies Active Allergy Reactions Criticality Noted Date [...] Orientation Not on file Plan of Treatment Not on file
--- OUTSIDE RECORDS SUMMARY | 2024-08-13 12:57 | XMS_ITS | Clinical Summary ---
Author Organization [facility] Address [address] [place] [address] Care Team Providers Care Java Lead Architect Name Role Phone Saurav Valverde MD Primary Care Provider [phone] Allergies Active Allergy Reactions Criticality Noted Date [...] 05/18/2021 Other chest pain 05/16/2021 Palpitations 05/16/2021 Encounters Date Type Department Care Team Description 07/04/2024 10:30 AM ORNAMENTAL METAL FABRICATOR APPRENTICE Office Visit [facility] Medical [facility] Cardiology [address] [place] [id number] Stefano Casey MD Nonrheumatic mitral valve regurgitation (Primary Dx); Other chest pain; Palpitations; Pure hypercholesterolemia; Equivocal stress test 07/04/2024 Orders Only [facility] Medical [facility] Cardiology [address] [place] [address] Provider, MD Asuncion from Last 3 Months Surgical History Surgery Date Site/Laterality Comments COLONOSCOPY LAPAROSCOPIC CHOLECYSTECTOMY Medical History Medical History Date Comments Palpitation Tick bite Joint pain Insomnia Family History Medical History Relation Name Comments Hypertension Father Alcohol abuse Mother Diabetes Mother Hypertension Mother Relation Name Status Comments Father Mother Social History Tobacco Use Types Packs/Day Years Used Date Smoking Tobacco: Former Tobacco Cessation:Counseling Given: Not Answered Comments Unknown Sex and Gender Information Value Date Recorded Sex Assigned at Not on file Legal Sex Female 11:37 AM ORNAMENTAL METAL FABRICATOR APPRENTICE Gender Identity Not on file Sexual Orientation Not on file Obstetrics History Last Filed Vital Signs Vital Sign Reading Time Taken Comments Blood Pressure 126/82 07/04/2024 10:51 AM ORNAMENTAL METAL FABRICATOR APPRENTICE Pulse 80 07/04/2024 10:51 AM ORNAMENTAL METAL FABRICATOR APPRENTICE Temperature - - Respiratory Rate - - Oxygen Saturation 96% 07/04/2024 10:51 AM ORNAMENTAL METAL FABRICATOR APPRENTICE Inhaled Oxygen Concentration - - Weight 61.2 kg (135 lb) 07/04/2024 10:51 AM ORNAMENTAL METAL FABRICATOR APPRENTICE Height 160 cm (5' 3 ) 07/04/2024 10:51 AM ORNAMENTAL METAL FABRICATOR APPRENTICE Body Mass Index 23.91 07/04/2024 10:51 AM ORNAMENTAL METAL FABRICATOR APPRENTICE Plan of Treatment Health Maintenance Due Date Last Done Comments Cervical Cancer Screening 1965 Colon Cancer Screening-Colonoscopy 1963 Depression Screening 1963 Hepatitis C Screening 1963 Regular Well Visit/Exam 18-64 1981 Zoster Vaccine (1 of 2) 2013 Covid-19 Vaccine (3 - season) 2024 07/25/2020, 07/05/2020 Influenza Vaccine (#1) 2024 Breast Cancer Screening-Mammogram 11/20/2024 11/21/2023, 10/19/2022, 07/11/2021, Additional history exists DTaP/Tdap/Td Vaccine (2 - Td or Tdap) 08/07/2027 08/07/2017 Pneumococcal vaccine <65 Aged Out No longer eligible based on patient's age to complete this topic Procedures Procedure Name Priority Date/Time Associated Diagnosis Comments POCT LIPID PANEL Routine 07/04/2024 10:59 AM ORNAMENTAL METAL FABRICATOR APPRENTICE Pure hypercholesterolemia SCREENING MAMMOGRAM BILATERAL W FILIBERTO Schedule Routine, Read Routine (OP Routine) 11/21/2023 1:03 PM CDT Screening mammogram, encounter for from Last 3 Months or Most Recently Relevant to Health Maintenance Results * POCT lipid panel (07/04/2024 10:59 AM ORNAMENTAL METAL FABRICATOR APPRENTICE) Cholesterol, POC 256 mg/dL Comment:Glucose = 86 HDL, POC 73 mg/dL Triglycerides, POC 65 mg/dL LDL Cholesterol POC 169 mg/dL Chol/HDL Ratio, POC 2.3 Non-HDL Cholesterol, POC 182 mg/dL Cholesterol Total, POC 256 mg/dL Capillary blood 07/04/2024 1 0:59 AM ORNAMENTAL METAL FABRICATOR APPRENTICE us Stefano Casey MD POINT OF CARE TEST [...] compared to prior imaging studies performed at [facility] on 03/09/2020, 07/11/2021 and 10/19/2022. There are [...] compared to prior imaging studies performed at [facility] on 03/09/2020, 07/11/2021 and 10/19/2022. There are scattered areas of fibroglandular density. There is no suspicious abnormality in either breast. Impression: There is no mammographic evidence of malignancy. Annual screening mammography is recommended. OVERALL FINAL ASSESSMENT: BI-RADS CATEGORY 1: Negative. us Self Screening Mammogram IMG MAMMO PROCEDURES Fi nal Result from Last 3 Months or Most Recently Relevant to Health Maintenance Insurance [facility] H[facility]/PPO Address: [address] [place] [address] [facility] [place] [facility] [place] PREFERRED Care Teams Java Lead Architect Relationship Specialty Start Date End Date Saurav Valverde MD [address] [facility] [address] [place] [address] PCP - General Obstetrics and Gynecology 10/17/23
== END 2024-08-13 12:20 | disposition home or self-care (01) ==
PROVIDERS: Emergency Provider Nurse Practitioner Family; PCP Nurse Practitioner
DX: B34.9 Viral infection, unspecified (principal); Z20.822 Contact with and (suspected) exposure to COVID-19; Z87.891 Personal history of nicotine dependence; E78.00 Pure hypercholesterolemia, unspecified; K21.9 Gastro-esophageal reflux disease without esophagitis; E78.5 Hyperlipidemia, unspecified; I08.1 Rheumatic disorders of both mitral and tricuspid valves
CPT/HCPCS: 87081; 87426; 87804; 87880; 99213; G0463

== ENCOUNTER 2025-02-10 08:01 | Outpatient (CLI) | payer OTHER, SELFPAY ==
--- OUTSIDE RECORDS SUMMARY | 2025-02-10 08:08 | XMS_ITS | Clinical Summary ---
Author Organization [facility] Address [address] [address] [place] [address] Care Team Providers Care Associate Professor Of Musicology Name Role Phone Unavailable Primary Care Provider Unavailabl e Source Comments [facility],non-owned Affiliates and Associated Physician Practices is amultiple site organization consisting of ambulatory clinics and hospital sitesin [place], [place], [place] and [place]. This disclosure is being madepursuant to the Care Everywhere program and may not contain all information available regarding this patient. Last updated 18.[facility] Allergies Active Allergy Reactions Criticality Noted Date Comments Sulfamethoxazole W-Trimethoprim Headache 04/15 Immunizations Immunization Administration Dates Next Due HEP A VACCINE, ADULT 08/01/2018,08/07/2017 HEP B VACCINE, ADULT 3 DOSE 05/03/2018, 8,08/07/2017 TDAP (7yrs+) 08/07/2017 Social History Tobacco Use Types Packs/Day Years Used Date Smoking Tobacco: Never Assessed Comments Unknown Sex and Gender Information Value Date Recorded Sex Assigned at Not on file Legal Sex Female 6:32 AM BRAID CUTTER Gender Identity Not on file Sexual Orientation [...] SCREENING 1965 LIPID TESTING 1965 MAMMOGRAM 1963 HIV SCREENING 1978 HEPATITIS C SCREENING 08/05/1981 PAP SMEAR 1984 PNEUMOCOCCAL VACCINE 50+ (1 of 1 - PCV) 2013 ZOSTER VACCINE (1 of 2) 2013 COVID-19 VACCINE (1 - 2023-2 5 season) 2024 DEPRESSION SCREENING 07/16/2024 INFLUENZA VACCINE (#1) 2025 DTAP/TDAP/TD VACCINES (2 - T d or [...] complete this topic MENINGOCOCCAL (Group B) VACCINE SHARED DECISION-MAKING Aged Out No longer eligible based on patient's age to complete this topic MENINGOCOCCAL GROUPS A/C/Y/W VACCINE Aged Out No longer eligible b ased on patient's age to [place] [address] [facility] [place] [address]
--- OUTSIDE RECORDS SUMMARY | 2025-02-10 08:08 | XMS_ITS | Referral Summary ---
Author Organization [facility] Address [address] [place] [address] Care Team Providers Care Loom Changeover Operator Name Role Phone Saurav Valverde MD Primary Care Provider [phone] Encounters Date Type Department Care Team Description 12/17/2024 9:19 AM CDT - 12/17/2024 11:59 PM CDT Hospital Encounter [facility] Medicine Breast Imaging [facility] Advanced Medicine ([facility]) [address] [place] [address] Screening mammogram, encounter for Discharge Disposition: Discharge to home or self care from Last 3 Months Allergies Active Allergy [...] on file Legal Sex Female 11:37 AM INSPECTOR TUBES Gender Identity Not on file Sexual Orientation Not on file Last Filed Vital Signs Vital Sign Reading Time Taken Comments Blood Pressure 126/82 07/04/2024 10:51 AM INSPECTOR TUBES Pulse 80 07/04/2024 10:51 AM INSPECTOR TUBES Temperature - - Respiratory Rate - - Oxygen Saturation 96% 07/04/2024 10:51 AM INSPECTOR TUBES Inhaled Oxygen Concentration - - Weight 61.2 kg (135 lb) 12/17/2024 9:33 AM CDT Height 160 cm (5' 3) 12/17/2024 9:33 AM CDT Body Mass Index 23.91 12/17/2024 9:33 AM CDT Plan of Treatment Not on file Procedures Procedure Name Priority Date/Time Associated Diagnosis Comments SCREENING MAMMOGRAM BILATERAL W FILIBERTO Schedule Routine, Read Routine (OP Routine) 12/17/2024 9:39 AM CDT Screening mammogram, encounter for from Last 3 Months Results * Screening Mammogram Bilateral W Filiberto (12/17/2024 9:39 AM CDT) Anatomical Region Laterality Modality Breast Bilateral Mammography Impressions 12/18/2024 11:47 AM CDT Bilateral No evidence of malignancy in either breast. OVERALL BI-RADS FINAL ASSESSMENT: 1 - Negative RECOMMENDATION: Recommend bilateral annual screening mammography. Narrative 12/18/2024 11:47 AM CDT EXAMINATION: Screening Mammogram Bilateral W Filiberto: 12/17/2024 COMPARISON: Relevant prior studies available at the time of interpretation were reviewed. TECHNIQUE: Mammography was performed with 2D and digital breast tomosynthesis (DBT) images. CAD was utilized. BREAST PARENCHYMAL COMPOSITION: There are scattered areas of fibroglandular density. FINDINGS: Bilateral There is no suspicious mass, calcification, or architectural distortion in either breast. us Self Screening Mammogram IMG MAMMO PROCEDURES Fi nal Result from Last 3 Months Insurance [facility] [address] [place] [phone] [facility] [place] [address] [facility] H[facility] PREF[facility] Care Teams Loom Changeover Operator Relationship Specialty Start Date End Date Saurav Valverde MD [address] [facility] [address] [place] [address] PCP - General Obstetrics and Gynecology 10/17/23
--- OUTSIDE RECORDS SUMMARY | 2025-02-10 08:08 | XMS_ITS | Clinical Summary ---
Author Organization [facility] Address [address] [place] [address] Care Team Providers Care Mover Name Role Phone Saurav Valverde MD Primary Care Provider [phone] Allergies Active Allergy Reactions Criticality Noted Date [...] - 12/17/2024 11:59 PM CDT Hospital Encounter [facility] Advanced Medicine Breast Imaging [facility] Advanced Medicine ([facility]) [address] [place] [address] Screening mammogram, encounter for Discharge Disposition: Discharge to home or self care from Last 3 Months Surgical History Surgery Date Site/Laterality Comments COLONOSCOPY LAPAROSCOPIC CHOLECYSTECTOMY Medical History Medical History Date Comments Palpitation Tick bite Joint pain Insomnia Family History Medical History Relation Name Comments Hypertension Father Breast cancer Maternal cousin Ovarian cancer Maternal cousin Alcohol abuse Mother Diabetes Mother Hypertension Mother Ovarian cancer Paternal Grandmother Relation Name Status Comments Father Maternal cousin Mother Paternal Grandmother Social History Tobacco Use Types Packs/Day Years Used Date Smoking Tobacco: Former Tobacco Cessation:Counseling Given: Not Answered Comments Unknown Sex and Gender Information Value Date Recorded Sex Assigned at Not on file Legal Sex Female 11:37 AM RESIDENTIAL YOUTH COUNSELOR Gender Identity Not on file Sexual Orientation Not on file Obstetrics History Para Term AB IAB SAB Ectopic Multiple Livin g Live Births 3 3 3 Date Outcome GA Total Labor Labor/2nd/3rd Weight Sex Type Anes PTL Ebony A1 A5 Name Clin Term Term Term Last Filed Vital Signs Vital Sign Reading Time Taken Comments Blood Pressure 126/82 07/04/2024 10:51 AM RESIDENTIAL YOUTH COUNSELOR Pulse 80 07/04/2024 10:51 AM RESIDENTIAL YOUTH COUNSELOR Temperature - - Respiratory Rate - - Oxygen Saturation 96% 07/04/2024 10:51 AM RESIDENTIAL YOUTH COUNSELOR Inhaled Oxygen Concentration - - Weight 61.2 kg (135 lb) 12/17/2024 9:33 AM CDT Height 160 cm (5' 3) 12/17/2024 9:33 AM CDT Body Mass Index 23.91 12/17/2024 9:33 AM CDT Plan of Treatment Health Maintenance Due Date Last Done Comments Cervical Cancer Screening 1963 Colon Cancer Screening-Colonoscopy 1963 Depression Screening 1963 Hepatitis C Screening 1963 Regular Well Visit/Exam 18-64 1981 Zoster Vaccine (1 of 2) 2013 Covid-19 Vaccine ( season) 2024 07/25/2020, 07/05/2020 Influenza Vaccine (#1) 2025 Breast Cancer Screening-Mammogram 12/17/2025 12/17/2024, 11/21/2023, 10/19/2022, Additional history exists DTaP/Tdap/Td Vaccine (2 - Td or Tdap) 08/07/2027 08/07/2017 Hepatitis B Screening Completed 05/03/2018 , 09/05/2017, 08/07/2017, Additional history exists Pneumococcal vaccine <65 Aged Out No longer [...] nal Result from Last 3 Months Insurance [facility] Member Subscriber Plan / Payer (Ef fective 2016-Present) Name:Hetal Cordero Relation to Subscriber:Self Name:Hetal Cordero Payer ID:[id number] ([facility]) Type:[facility] HMO/PPO Address: [place] [id number] [place] [phone] [facility] Member Subscriber Plan / Payer (Ef fective 2016-Present) Name:Hetal Cordero Relation to Subscriber:Self Name:Hetal Cordero Payer ID:[id number] ([facility]) Type:[facility] HMO/PPO Address: [place] [id number] [place]REFERR[place] [facility] HMO [facility] Care Teams Mover Relationship Specialty Start Date End Date Saurav Valverde MD [address] [facility] [address] [place] [address] PCP - General Obstetrics and Gynecology 10/17/23
--- OUTSIDE RECORDS SUMMARY | 2025-02-10 08:08 | XMS_ITS | Encounter Summary ---
Author Organization [facility] Address [address] [place] [address] Care Team Providers Care Unit Trust Manager Name Role Phone Saurav Valverde MD Primary Care Provider [phone] Encounter Details Date Type Department Care Team (Late st Contact Info) Description 04/10/2024 Orders Only [facility] Health Information Management [address] [place] [id number] Scanning, Provider Social History Tobacco Use Types Packs/Day Years Used Date Smoking Tobacco: Former Comments Unknown Sex and Gender Information Value Date Recorded Sex Assigned at Not on file Legal Sex Female 11:37 AM ADVANCED SEAL DELIVERY SYSTEM Gender Identity Not on file Sexual Orientation Not on file documented as of this encounter Plan of Treatment Not on file documented as of this encounter Procedures Procedure Name Priority Date/Time Associated Diagnosis Comments SCAN - LABS 04/10/2024 documented in this encounter Results * SCAN - LABS (04/10/2024) us Provider Scanning Final Result documented in this encounter Visit Diagnoses Not on filedocumented in this encounter Care Teams Unit Trust Manager Relationship Specialty Start Date End Date Saurav Valverde MD [address] [facility] [address] [place] [address] PCP - General Obstetrics and Gynecology 10/17/23 documented as of this encounter
--- NOTE | 2025-03-03 14:57 | WPDSLEEPSTUD ---
Sleep Study Date of Study: 02/10/25 Ordering Provider: Nigel Carranza APRN Interpreting Physician: Adrianna Lemus DO Sleep Study Type: Polysomnogram Height: 1.6 m Weight: 63.503 kg Body Mass Index: 24.7 Neck Circumference (inches): 13 [place]: 3 Reason for Sleep Study Unrefreshing sleep Sleep History The patient is a 59-year-old female who had a sleep study ordered by her primary care for the evaluation of sleep apnea. The patient denies awakening from sleep short of breath. She occasionally awakens at night with heartburn, belching, or cough. She rarely snores, and it is never loud enough that others complain. She frequently has trouble sleeping when she has a cold. She denies waking up gasping for air throughout the night. She rarely has breathing problems at night observed by herself or others. She frequently sweats excessively at night. She denies having heart palpitations or irregular heartbeats during the night. She rarely falls asleep during the day and never while driving. She denies sleep paralysis, cataplexy, and hypnagogic-hypnopompic hallucinations. She occasionally has trouble at school or work due to sleepiness. She frequently experiences vivid dreamlike scenes upon awakening or falling asleep. She denies feeling afraid of going to sleep. She occasionally has nightmares. She occasionally remembers her dreams. She occasionally has thoughts racing through her mind. She rarely feels sad or depressed. She occasionally has anxiety. She frequently has muscular tension. She rarely notices parts of her body jerk. She denies kicking during the night. She rarely has crawling and aching feelings in her legs but never has leg pain during the night. She denies awakening in the morning with jaw pain. fShe is occasionally bothered by pain during the day but never awakened by pain during the night. She occasionally wakes up feeling stiff in the morning. She occasionally wakes up with sore or achy muscles. She frequently wakes up with pain in the neck, spine, and other joints. She goes to bed between 10:30 to 11:00 PM on weekdays and between 11:00 to 11:30 PM on the weekends. It takes her a few minutes to fall asleep. She wakes up five times throughout the night to either urinate or adjust her position. She is able to fall back asleep within a few minutes. She wakes up between 7:00-7:30 AM on weekdays and between 7:00-8:00 AM on the weekends. She typically gets 7 hours of sleep per night. She will stay in bed for 10-15 minutes after waking up in the morning. She currently lives with her and adult child. She denies consuming any caffeinated beverages within 2 hours of bedtime. She denies engaging in physical exercise before bedtime. She will occasionally read and watch television before falling asleep. She denies taking naps in the afternoon or the evening. She consumes 2-3 cups of a caffeinated beverage per day. She quit smoking cigarettes 40 years ago. She has one alcoholic beverage once per week. She denies recreational drug use. [facility] Past Medical History Medical History BMI 24.0-24.9, adult Upper abdominal pain Pure hypercholesterolemia Gastro-esophageal reflux disease without esophagitis Ear pain, left Dizziness and giddiness Current use of proton pump inhibitor Tricuspid valve regurgitation Mitral valve regurgitation Insomnia Hyperlipidemia GERD (gastroesophageal reflux disease) History of seizure Surgical History Surgical History History of colposcopy History of laparoscopic cholecystectomy 09/01/2019 Hx of tonsillectomy Family History Family History Grandparent Hypertension Cerebrovascular accident Diabetes mellitus Mother Cerebrovascular accident History of alcohol abuse Diabetes mellitus Hypertension Depression Anxiety Dementia Father Hypertension Dementia Alzheimer disease Malignant neoplasm of prostate Carcinoma of colon Liver cancer Sibling Patient's brother is in good health Hypertension Other Family history of alcoholism Family history of arthritis Family history of diabetes mellitus in first degree relative Family history of malignant neoplasm Family history of mental disorder Social History Social History Smoking status: Former smoker Second hand tobacco smoke exposure: No Smoking end date: 07/16/85 Alcohol intake: current Drinks per week: 2 Alcohol use details: 2-3 drinks per month Substance use: never Substance use type: does not use Do You Feel Safe in your Home?: Yes Lack of Transportation: No Lack of Food: Never True Current Housing: I Have Housing Concerned About Future Housing: No Difficulty Paying Gas/Electric Bills: No Difficulty Paying for Meds: No Currently Unemployed: No Education: Bachelor's Degree Difficulty w/ Childcare or Family Care: No Living arrangements: with family Occupation/Education: occupation Additional occupation/education comments: Pharmacist Gender identity (if verbalized by the patient): Female Spiritual care concerns: No Medications Home Medications ?Medication ?Instructions ?Recorded ?Confirmed ?Type cholecalciferol (vitamin D3) 50 2,000 unit PO DAILY 07/18/19 08/05/24 History mcg (2,000 unit) capsule melatonin 3 mg capsule 3 mg PO HS Insomnia 07/21/19 08/05/24 History simethicone 125 mg capsule 125 mg PO DAILY Abdominal 09/20/20 08/05/24 History Discomfort famotidine 20 mg tablet 20 mg PO BID 09/21/20 08/05/24 History calcium carbonate (Tums) 200 mg PO BID Abdominal Discomfort 04/05/21 08/05/24 History omega 6-hkt-bvq-fish oil 300 1 cap PO 3XW 12/18/22 08/05/24 History mg-1,000 mg capsule (Fish Oil) Lactobacillus rhamnosus GG 10 1 cap PO DAILY 02/20/23 08/05/24 History billion cell capsule (Culturelle) vitamin B complex (B 1 tablet PO DAILY 02/20/23 08/05/24 History Complex-Vitamin B12 tablet) loratadine 5 mg disintegrating 5 mg PO ONCE 02/22/24 08/05/24 History tablet (Allergy Relief (loratadine)) prasterone (DHEA) 6.5 mg vaginal 6.5 mg vaginal DAILY #84 ea 08/04/24 08/05/24 Rx insert (Intrarosa) methocarbamol 500 mg tablet 500 mg PO TID PRN muscle spasm #10 08/05/24 08/05/24 Rx tabs zolpidem 6.25 mg tablet,extended 6.25 mg PO QHS #30 tabs 08/06/24 08/06/24 Rx release,multiphase (Ambien CR) Sleep Procedure A full night polysomnogram using the Tracks.by multi-channel system recorded the standard physiologic parameters including EEG, EOG, submentalis EMG, anterior tibialis EMG, EKG, body position, nasal and oral airflow using nasal pressure sensor and thermistor.? Respiratory parameters of chest and abdominal movements were recorded with Respiratory Inductance Plethysmography belts. Oxygen saturation was recorded by pulse oximetry. Video monitoring was also performed. Sleep stages, periodic limb movements, and EEG arousals were scored in 30 second epochs according to the criteria of the AASM Scoring Manual. The Apnea-Hypopnea Index was calculated using [facility] guidelines for definition of hypopnea with 4% O2 desaturations while scoring respiratory events. Sleep Architecture The total recording time was 553.7 minutes.? The total sleep time was 460.5 minutes. Sleep latency was 26.0 minutes. REM latency was 169.0 minutes. Sleep efficiency was 83.2%. The patient had 44 awakenings for an awakening index of 5.7. Wake after sleep onset time was 67.0 minutes. The patient spent 37.0 minutes, 8.0% of total sleep time in Stage N1. The patient spent 234.0 minutes, 50.8% in Stage N2. The patient spent 120.0 minutes, 26.1% in Stage N3. The patient spent 69.5 minutes, 15.1% in Stage REM sleep. Respiratory Analysis The patient had 35 hypopneas, 1 obstructive apnea and 13 central apneas for an overall Apnea Hypopnea Index of 6.4. The REM Apnea Hypopnea Index was 33.7. The NREM Apnea Hypopnea Index was 4.1. The patient had a Central Apnea Hypopnea Index of 1.7. There was no evidence of Cornel-Burnett Respirations. Arousals There were 175 total arousals for an arousal index of 22.8. There were 151 spontaneous arousals for an index of 19.7. There were 18 arousals due to respiratory events for an index of 2.3. There were 0 arousals due to periodic limb movements for an index of 0.? There were 6 arousals due to isolated limb movements for an index of 0.8. Periodic Limb Movements The patient had 7 isolated limb movements with an index of 0.9. The patient had 0 periodic limb movements with an index of 0. Patient had a total of 7 limb movements with a total limb movement index of 0.9. Oximetry Data The patient had an average oxygen saturation of 93.5% in sleep with a minimum oxygen saturation of 79.0% and a maximum oxygen saturation of 98.0%. The patient had 46 oxygen desaturations that were 4% or greater resulting in an Oxygen Desaturation Index of 6.0.? The patient spent 1.6 minutes, 0.3% of total sleep time with an oxygen saturation below 88%. Snoring Profile Mild to moderate snoring was present throughout the study. Cardiac Profile The EKG showed normal sinus rhythm. No arrhythmias or premature beats were seen. The patient had an average pulse rate of 62.4 bpm with a minimum pulse of rate of 53.0 bpm and a maximum pulse rate of 97.0 bpm.? EEG Profile No signs of seizure activity seen. Assessment and Plan Assessment and Plan (1) SAFIA (obstructive sleep apnea): Code(s): G47.33 - Obstructive sleep apnea (adult) (pediatric) Status: Acute Assessment and Plan: The patient had an overall AHI of 6.4 with desaturation down to 79%. This is consistent with mild sleep apnea. Due to the patient's insomnia, she qualifies for treatment. I recommend that the patient be prescribed AutoPAP 5-15 cm H2O, CPAP mask/filters/tubing and heated humidity. A mandibular advancement device is also an acceptable treatment option. This should be used with all episodes of sleep.? Compliance should be reviewed within 31-90 days of starting therapy for usage greater than 4 hours per night greater than 70% of the nights. The patient should be asked about symptoms such as?excessive daytime sleepiness, quality of sleep, decreased nocturia, increased?mental functioning such as memory, mood, and concentration. Data The data obtained during this sleep study is adequate for interpretation. Certification This sleep study has been reviewed by a board certified sleep medicine physician.
[2025-03-03 15:10] VITALS: BMI 24.7
--- NOTE | 2025-03-03 22:46 | WPDSLEEPSTUD ---
Sleep Study Date of Study: 02/10/25 Ordering Provider: Nigel Carranza APRN Interpreting Physician: Joy May MD Sleep Study Type: Polysomnogram Height: 1.6 m Weight: 63.503 kg Body Mass Index: 24.7 Neck Circumference (inches): 13 [place]: 3 PMFSH Past Medical History Medical History BMI 24.0-24.9, adult Upper abdominal pain Pure hypercholesterolemia Gastro-esophageal reflux disease without esophagitis Ear pain, left Dizziness and giddiness Current use of proton pump inhibitor Tricuspid valve regurgitation Mitral valve regurgitation Insomnia Hyperlipidemia GERD (gastroesophageal reflux disease) History of seizure Surgical History Surgical History History of colposcopy History of laparoscopic cholecystectomy 09/01/2019 Hx of tonsillectomy Family History Family History Grandparent Hypertension Cerebrovascular accident Diabetes mellitus Mother Cerebrovascular accident History of alcohol abuse Diabetes mellitus Hypertension Depression Anxiety Dementia Father Hypertension Dementia Alzheimer disease Malignant neoplasm of prostate Carcinoma of colon Liver cancer Sibling Patient's brother is in good health Hypertension Other Family history of alcoholism Family history of arthritis Family history of diabetes mellitus in first degree relative Family history of malignant neoplasm Family history of mental disorder Social History Social History Smoking status: Former smoker Second hand tobacco smoke exposure: No Smoking end date: 07/16/85 Alcohol intake: current Drinks per week: 2 Alcohol use details: 2-3 drinks per month Substance use: never Substance use type: does not use Do You Feel Safe in your Home?: Yes Lack of Transportation: No Lack of Food: Never True Current Housing: I Have Housing Concerned About Future Housing: No Difficulty Paying Gas/Electric Bills: No Difficulty Paying for Meds: No Currently Unemployed: No Education: Bachelor's Degree Difficulty w/ Childcare or Family Care: No Living arrangements: with family Occupation/Education: occupation Additional occupation/education comments: Pharmacist Gender identity (if verbalized by the patient): Female Spiritual care concerns: No Medications Home Medications ?Medication ?Instructions ?Recorded ?Confirmed ?Type cholecalciferol (vitamin D3) 50 2,000 unit PO DAILY 07/18/19 08/05/24 History mcg (2,000 unit) capsule melatonin 3 mg capsule 3 mg PO HS Insomnia 07/21/19 08/05/24 History simethicone 125 mg capsule 125 mg PO DAILY Abdominal 09/20/20 08/05/24 History Discomfort famotidine 20 mg tablet 20 mg PO BID 09/21/20 08/05/24 History calcium carbonate (Tums) 200 mg PO BID Abdominal Discomfort 04/05/21 08/05/24 History omega 4-fwf-nhm-fish oil 300 1 cap PO 3XW 12/18/22 08/05/24 History mg-1,000 mg capsule (Fish Oil) Lactobacillus rhamnosus GG 10 1 cap PO DAILY 02/20/23 08/05/24 History billion cell capsule (Culturelle) vitamin B complex (B 1 tablet PO DAILY 02/20/23 08/05/24 History Complex-Vitamin B12 tablet) loratadine 5 mg disintegrating 5 mg PO ONCE 02/22/24 08/05/24 History tablet (Allergy Relief (loratadine)) prasterone (DHEA) 6.5 mg vaginal 6.5 mg vaginal DAILY #84 ea 08/04/24 08/05/24 Rx insert (Intrarosa) methocarbamol 500 mg tablet 500 mg PO TID PRN muscle spasm #10 08/05/24 08/05/24 Rx tabs zolpidem 6.25 mg tablet,extended 6.25 mg PO QHS #30 tabs 08/06/24 08/06/24 Rx release,multiphase (Pasha VILLANUEVA) Assessment and Plan Data The data obtained during this sleep study is adequate for interpretation. Certification This sleep study has been reviewed by a board certified sleep medicine physician.
== END 2025-02-11 07:21 | disposition home or self-care (01) ==
LOC: ANHCSM 08:02
PROVIDERS: PCP Nurse Practitioner; Visit Provider Nurse Practitioner
DX: G47.33 Obstructive sleep apnea (adult) (pediatric) (principal); G47.10 Hypersomnia, unspecified
CPT/HCPCS: 95810

== ENCOUNTER 2025-06-30 09:22 | Outpatient (CLI) | payer OTHER, SELFPAY ==
--- OUTSIDE RECORDS SUMMARY | 2025-06-30 10:34 | XMS_ITS | Clinical Summary ---
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 Gender Identity Not on file Sexual Orientation Not on file Obstetrics History Para Term AB IAB SAB Ectopic Multiple Livin g Live Births 3 3 3 Date Outcome GA Total Labor Labor//3rd Weight Sex Type Anes PTL Ebony A1 A5 Name Clin Term Term Term Last Filed Vital Signs Vital Sign Reading Time Taken Comments Blood Pressure 126/82 07/04/2024 10:51 AM CENTRAL LAB TECHNICIAN Pulse 80 07/04/2024 10:51 AM CENTRAL LAB TECHNICIAN Temperature - - Respiratory Rate - - Oxygen Saturation 96% 07/04/2024 10:51 AM CENTRAL LAB TECHNICIAN Inhaled Oxygen Concentration - - Weight 61.2 [...] of 2) 2013 Covid-19 Vaccine (3 - Pfizer risk series) 08/22/2020 07/25/2020, 07/05/2020 Influenza Vaccine (#1) 2025 Breast [...] Recently Relevant to Health Maintenance Results * Screening Mammogram Bilateral W Filiberto [...] Most Recently Relevant to Health Maintenance Insurance [facility] [employer] [place] [place] [address] [employer] [place] [place] [address] [facility] H[facility] Care Teams Draw Tender Relationship Specialty Start Date End Date Saurav Valverde MD [address] [facility] [address] [address] [address] PCP - General Obstetrics and Gynecology 10/17/23
--- OUTSIDE RECORDS SUMMARY | 2025-06-30 10:34 | XMS_ITS | Clinical Summary ---
Author Organization [facility] [employer] [facility] Address [address] [place] [address] Care Team Providers Care Jewelry Making Instructor Name Role Phone Unavailable Primary Care Provider Unavailabl e Social History Tobacco Use Types Packs/Day Years Used Date Smoking Tobacco: Never Assessed Comments Unknown Sex and Gender Information Value Date Recorded Sex Assigned at Not on file Legal Sex Female 5:49 PM EDT Gender Identity Not on file Sexual Orientation Not on file Plan of Treatment Not on file Medical Devices Not on file
--- OUTSIDE RECORDS SUMMARY | 2025-06-30 10:34 | XMS_ITS | Clinical Summary ---
Author Organization [facility] Address [address] [place] [address] Care Team Providers Care Plant Protection Guard Name Role Phone Unavailable Primary Care Provider Unavailabl e Source Comments [facility],non-owned Affiliates and Associated Physician Practices is amultiple site organization consisting of ambulatory clinics and hospital sitesin [place], [place], [place] and [place]. This disclosure is being madepursuant to the Care Everywhere program and may not contain all information available regarding this patient. 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
== END 2025-06-30 09:23 | disposition home or self-care (01) ==
PROVIDERS: PCP Nurse Practitioner; Visit Provider Nurse Practitioner
DX: T78.40XA Allergy, unspecified, initial encounter (principal)
CPT/HCPCS: 86003